=== PATIENT | female | born 1970 | race Caucasian/White ===

== ENCOUNTER → 2017-02-04 | Outpatient (CLI) | payer BC ==
[~2017-02-04] MED LIST: ACET1TAB43 PO; ATEN-155 PO; ATEN25TA PO; AZIT250T5 PO; CETI10TA20 PO; CLON0.1T; CRAN1CAP7 PO; DEXA4TAB; DIAZ-345 PO; DIAZ5TAB3; ESCT10T; ESTR0.5T PO; ESTR1TAB24 PO; FLUT1BLS IH; FURO20TA4 PO; GABA-488; GLYC1TAB5 PO; GLYC2TAB PO; HYDR-3714 PO; KETO-22 PO; KETO10TA77 PO; LEVA0.6313 NEB; LIDOCAINE; MONT10TA24 PO; MYLANTA; OXYC-103 PO; OXYC-12 PO; PANT40TA2 PO; PANT40TA3 PO; PHENTERAMINE; POTA20TA7 PO; PRCD5U PO; PRD10T PO; PRD20T PO; PROM25SU10 RC; RT-ALBUINH INH; SERT50TA PO; TMSL.4C PO; TRAM50TA2 PO; TRIA1CAP4 PO
--- NOTE | 2017-02-04 15:56 | Diagnostic Imaging Report ---
EXAMINATION: PA and lateral views of the chest. INDICATION: Chest pain. The patient reports having a lung biopsy 2 weeks ago. FINDINGS: There are bibasilar infiltrates that appear to be within the inferior lingula and the right middle lobe. The opacity in the right lung base has a nodular component. Reportedly the patient has had a biopsy performed. The heart size is normal. No effusion or pneumothorax. The mediastinum and dipak appear unremarkable. IMPRESSION: Bibasilar opacities may relate to infiltrates and/or atelectasis. There is a nodular component lesion in the right middle lobe seen as well. CT scan correlation is recommended. Dictated by: Dictated on workstation # [id number]
== END ==
LOC: RAD 10:27
PROVIDERS: ATTEND Internal Medicine
DX: R07.89 Other chest pain (principal)
CPT/HCPCS: 71020

== ENCOUNTER → 2017-07-25 | Outpatient (CLI) | payer BC ==
--- NOTE | 2017-07-25 09:27 | Diagnostic Imaging Report ---
EXAMINATION: Bilateral diagnostic mammogram with tomography. The current study was also evaluated with a Computer Aided Detection (CAD) system. COMPARISON: 04/24/2015. INDICATION: Right breast lump. FINDINGS: The breasts are composed of heterogeneously dense parenchyma which may decrease mammographic sensitivity. There is no mass, architectural distortion, or suspicious cluster of calcifications. IMPRESSION: No mammographic evidence of malignancy. An ultrasound evaluation is pending. ACR BI-RADS Category 0: Incomplete. (Needs additional imaging evaluation). Result letter will be mailed to the patient. Note: At least 10% of breast cancer is not imaged by mammography. Dictated by: Dictated on workstation # [id number]
--- NOTE | 2017-07-25 09:38 | Diagnostic Imaging Report ---
EXAMINATION: Right breast ultrasound. INDICATION: Right breast lump. FINDINGS: The area of lump around the 7 o'clock zone in the right breast was scanned with no underlying abnormality seen. IMPRESSION: Negative study. Clinical followup of the palpable area is recommended. ACR BI-RADS Category 1: Negative. Result letter will be mailed to the patient. Note: At least 10% of breast cancer is not imaged by mammography. Dictated by: Dictated on workstation # [id number]
== END ==
LOC: RAD 07:48
PROVIDERS: ATTEND Nurse Practitioner
DX: N63 Unspecified lump in breast (principal)
CPT/HCPCS: 77066

== ENCOUNTER 2017-09-12 09:13 | Outpatient (CLI) | payer BC | END 2017-09-12 09:20 | disposition home or self-care (01) | LOC: SLEEP 09:13 | PROVIDERS: ATTEND Nurse Practitioner Family | DX: G47.33 Obstructive sleep apnea (adult) (pediatric) (principal); G47.10 Hypersomnia, unspecified; R06.83 Snoring; J84.10 Pulmonary fibrosis, unspecified ==

== ENCOUNTER 2017-09-30 16:11 | Emergency (ER) | payer BC ==
[~2017-09-30] VITALS: Ht 160 cm; Wt 86.2 kg
[~2017-09-30 16:11] MED LIST changes: +AZIT250T12 PO; -AZIT250T5 PO
--- OUTSIDE RECORDS SUMMARY | 2017-09-30 16:15 | XMS REPORT ---
Author Author RAYMUNDO HARRIS [facility] Address [address] [place] [address] Care Team Providers Care Evidence Technician Name Role Phone RAYMUNDO HARRIS Unavailable PROBLEMS Type Condition ICD9-CM Code [id number] Code Onset Dates Condition Status SNOMED Code Problem Need for prophylactic vaccination and inoculation, Influenza V04.81 Active 511108949 ALLERGIES No Information SOCIAL HISTORY Never Assessed PLAN OF CARE VITAL SIGNS MEDICATIONS Medication Instructions Dosage Frequency Start Date End Date Duration Status Tamiflu 75 MG Orally Once a day 1 capsule 24h Dec, 10 days Active RESULTS No Results PROCEDURES No Known procedures IMMUNIZATIONS No Known Immunizations
--- OUTSIDE RECORDS SUMMARY | 2017-09-30 16:15 | XMS REPORT | Clinical Summary ---
Author Author [facility] Organization [facility] Address Unknown Phone Unavailable Care Team Providers Care Wallet Assembler Name Role Phone PCP Unavailable Source Comments Some departments are not documenting in the electronic medical record. If you do not see the information that you expected, contact Release of Information in the Health Information Management department at [phone] for further assistance in locating additional records.[facility] Allergies Active Allergy Reactions Severity Noted Date Comments Tetanus Toxoid ANAPHYLAXIS High 08/13/2016 Triamterene ANAPHYLAXIS High 08/16/2016 Current Medications Prescription Sig. Disp. Refills Start End Date Status Date estradiol (ESTRACE) 1 mg Take 1 mg by mouth daily. Active tablet atenolol (TENORMIN) 25 mg Take 25 mg by mouth Active tablet daily. albuterol 0.5% Inhale 2.5 mg solution by Active (PROVENTIL; VENTOLIN) 2.5 nebulizer as directed mg/0.5 mL nebulizer every 6 hours as needed solution for Shortness of Breath or Wheezing. albuterol (VENTOLIN HFA) Inhale 2 Puffs by mouth Active 90 mcg/actuation inhaler into the lungs every 6 hours as needed for Wheezing or Shortness of Breath. Shake well before use. CRANBERRY FRUIT EXTRACT Take by mouth daily. Active (CRANBERRY PO) ERGOCALCIFEROL (VITAMIN Take by mouth. Active D2) (VITAMIN D PO) prednisone (DELTASONE) 10 40 mg (4 tabs) x 5 days, 35 Tab 0 10/05/20 Active mg tablet then 20 mg (2 tabs) x 5 16 days, then 10 mg (1 tab) x 5 days benzonatate (TESSALON Take 1 Cap by mouth every 30 Cap 0 10/05/20 Active PERLES) 100 mg capsule 8 hours as needed for 16 Cough. Active Problems Problem Noted Date JUNI (obstructive sleep apnea) 09/15/2016 Gastroesophageal reflux disease without esophagitis 09/15/2016 Pulmonary HTN 09/07/2016 Dyspnea and respiratory abnormality 09/07/2016 Cough, persistent 09/07/2016 Family History Medical History Relation Name Comments Allergy-severe Brother Migraines Brother Cancer Father Migraines Father Allergy-severe Mother Anesthetic Complication Mother Blood Clots Mother Hypertension Mother Relation Name Status Comments Brother Alive Father Mother Alive Social History Tobacco Use Types Packs/Day Years Used Date Never Smoker Sex Assigned at Date Recorded Not on file Last Filed Vital Signs Vital Sign Reading Time Taken Blood Pressure 126/74 10/12/2016 10:42 AM 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 Pulse 80 09/20/2016 9:51 AM 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 Temperature 36.5 C (97.7 F) 09/15/2016 6:00 PM 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 Respiratory Rate 18 08/16/2016 10:21 AM CDT Oxygen Saturation 96% 09/15/2016 6:00 PM 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 Inhaled Oxygen - - Concentration Weight 90.9 kg (200 lb 4.8 oz) 10/12/2016 10:42 AM 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 Height 160 cm (5' 3") 10/12/2016 10:42 AM 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 Body Mass Index 35.48 10/12/2016 10:42 AM 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 Plan of Treatment Health Maintenance Due Date Last Done Comments PHYSICAL (COMPREHENSIVE) 1976 EXAM PERTUSSIS VACCINE 1980 TETANUS VACCINE 1986 CERVICAL CANCER SCREENING 1999 BREAST CANCER SCREENING 2009 INFLUENZA VACCINE 05/31/2017 Results Not on filefrom Last 3 Months
[2017-09-30] MEDS ORDERED: CEPH500T PO (16:22)
--- NOTE | 2017-09-30 16:35 | ED GI ---
General Chief Complaint: Abdominal/GI Problems Stated Complaint: DIARRHEA/PASSING OUT Source of Information: Patient, Family Exam Limitations: No Limitations History of Present Illness Time Seen By Provider: 16:33 Initial Comments To ER with reports of watery diarrhea today without blood or mucus, abdominal cramping, no nausea or vomiting. She did pass out 3 times today while on the toilet at home. Her daughter was ill with similar symptoms for the past few days but those have resolved today states. Timing/Duration: 1-2 Days Severity/Quality: Moderate Radiation: No Radiation Allergies and Home Medications Allergies Coded Allergies: Tetanus Vaccines and Toxoid (Verified Allergy, Unknown, 05/08/12) Home Medications Acetaminophen with Codeine 1 Each Tablet, 1 TAB PO HS, #20 Prescribed by: ZOHRA MARTINEZ on 12/15/15 1354 Albuterol Sulfate 18 Gm Hfa.aer.ad, 2 PUFF INH Q4H PRN for SHORTNESS OF BREATH, (Reported) Clonidine HCl 0.1 Mg Tablet, #60 (Reported) Cranberry Conc/Ascorbic Acid 1 Each Capsule, 2 CAP PO HS, (Reported) Dexamethasone 4 Mg Tablet, #30 (Reported) Diazepam 5 Mg Tablet, #45 (Reported) Estradiol 1 Mg Tablet, 1.5 MG PO HS, (Reported) TAKES 1 & 1/2 (1MG) TABLETS Fluticasone/Vilanterol 1 Each Blst.w.dev, 1 PUFF IH DAILY, (Reported) Gabapentin 300 Mg Capsule, #30 (Reported) Levalbuterol HCl 0.63 Mg/3 Ml Vial.neb, 0.63 MG NEB TID, (Reported) Review of Systems Constitutional: see HPI EENTM: No Symptoms Reported Respiratory: See HPI Cardiovascular: No Symptoms Reported Gastrointestinal: See HPI, Abdominal Pain, Diarrhea, Nausea Genitourinary: No Symptoms Reported Musculoskeletal: no symptoms reported Skin: no symptoms reported Psychiatric/Neurological: No Symptoms Reported Endocrine: No Symptoms Reported Hematologic/Lymphatic: No Symptoms Reported Past Jshphpe-Xjyiru-Smowoq Hx Patient Social History Recent Foreign Travel: No Contact w/Someone Who Travel: No Recent Hopitalizations: No Immunizations Up To Date Tetanus Booster (TDap): Unknown Respiratory Respiratory Disorders: Asthma, Chronic Bronchitis Reproductive System Hx Reproductive Disorders: Yes (INFERTILITY; HX OF HYST) 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 Genitourinary Genitourinary Disorders: Kidney Stones Family Medical History Family Medial History: Arthritis Cardiovascular disease Cataracts Completed stroke Coronary thrombosis Deafness or hearing loss Diabetes mellitus Glaucoma Hypertension Osteoporosis Parkinson's disease Prostate cancer Respiratory disorder Severe allergy Visual disorder No Family History of: AIDS Abdominal aortic aneurysm Darwin's disease Alcoholism Alzheimer's disease Aphasia Asthma Cancer of mouth Colon cancer Congenital disease Congenital heart disease Cystic fibrosis Dementia Drug abuse Dysphasia Fibrocystic disease of breast Gastroenteritis Headache disorder Hypercholesterolemia Infertility Kidney disease Myocardial infarction Neoplasm Not obtainable due to adoption Psychosocial problem Seizure disorder Thyroid disease Tuberculosis Physical Exam Vital Signs VS - Last 72 Hours, by Label 09/30/17 09/30/17 16:23 19:39 Temp 97.1 97.1 Pulse 87 87 Resp 20 20 B/P (MAP) 122/82 (95) Pulse Ox 94 94 O2 Delivery Room Air Capillary Refill : General Appearance: WD/WN, no apparent distress HEENT: PERRL/EOMI, normal ENT inspection Neck: non-tender, full range of motion Respiratory: no respiratory distress, no accessory muscle use Gastrointestinal: normal bowel sounds, non tender, soft Extremities: normal range of motion, non-tender Neurologic/Psychiatric: alert, oriented x 3, other ( tachypneic, asks for inhaler but this is the only time that she talks. Lungs are clear with good air movement. No rhonchi wheezing or rales. Keeps eyes closed during conversation.) Skin: normal color, warm/dry Progress/Results/Core Measures Results/Orders Lab Results Laboratory Tests Test 09/30/17 16:30 09/30/17 18:15 Range/Units White Blood Count 14.5 H 4.3-11.0 10^3/uL Red Blood Count 5.47 4.35-5.85 10^6/uL Hemoglobin 14.7 11.5-16.0 G/DL Hematocrit 43 35-52 % Mean Corpuscular Volume 79 L 80-99 FL Mean Corpuscular Hemoglobin 27 25-34 PG Mean Corpuscular Hemoglobin Concent 34 32-36 G/DL Red Cell Distribution Width 14.2 10.0-14.5 % Platelet Count 356 130-400 10^3/uL Mean Platelet Volume 9.7 7.4-10.4 FL Neutrophils (%) (Auto) 91 H 42-75 % Lymphocytes (%) (Auto) 4 L 12-44 % Monocytes (%) (Auto) 4 0-12 % Eosinophils (%) (Auto) 1 0-10 % Basophils (%) (Auto) 0 0-10 % Neutrophils # (Auto) 13.1 H 1.8-7.8 X 10^3 Lymphocytes # (Auto) 0.6 L 1.0-4.0 X 10^3 Monocytes # (Auto) 0.6 0.0-1.0 X 10^3 Eosinophils # (Auto) 0.1 0.0-0.3 10^3/uL Basophils # (Auto) 0.0 0.0-0.1 10^3/uL Neutrophils % (Manual) 90 % Lymphocytes % (Manual) 7 % Monocytes % (Manual) 3 % Eosinophils % (Manual) 0 % Basophils % (Manual) 0 % Band Neutrophils 0 % Blood Morphology Comment NORMAL Sodium Level 139 135-145 MMOL/L Potassium Level 4.1 3.6-5.0 MMOL/L Chloride Level 104 98-107 MMOL/L Carbon Dioxide Level 25 21-32 MMOL/L Anion Gap 10 5-14 MMOL/L Blood Urea Nitrogen 11 7-18 MG/DL Creatinine 0.84 0.60-1.30 MG/DL Estimat Glomerular Filtration Rate > 60 BUN/Creatinine Ratio 13 Glucose Level 120 H 70-105 MG/DL Calcium Level 9.7 8.5-10.1 MG/DL Total Bilirubin 0.5 0.1-1.0 MG/DL Aspartate Amino Transf (AST/SGOT) 18 5-34 U/L Alanine Aminotransferase (ALT/SGPT) 16 0-55 U/L Alkaline Phosphatase 111 40-136 U/L Total Protein 7.8 6.4-8.2 GM/DL Albumin 4.1 3.2-4.5 GM/DL Lipase 17 8-78 U/L Urine Color YELLOW Urine Clarity CLEAR Urine pH 6 5-9 Urine Specific [place] 1.015 L 1.016-1.022 Urine Protein 1+ H NEGATIVE Urine Glucose (UA) NEGATIVE NEGATIVE Urine Ketones 1+ H NEGATIVE Urine Nitrite NEGATIVE NEGATIVE Urine Bilirubin NEGATIVE NEGATIVE Urine Urobilinogen NORMAL NORMAL MG/DL Urine Leukocyte Esterase NEGATIVE NEGATIVE Urine RBC (Auto) NEGATIVE NEGATIVE Urine RBC NONE /HPF Urine WBC RARE /HPF Urine Squamous Epithelial Cells 10-25 H /HPF Urine Crystals NONE /LPF Urine Bacteria FEW H /HPF Urine Casts NONE /LPF Urine Mucus SMALL H /LPF Urine Culture Indicated NO My Orders Orders - VILLAGOMEZ,PETER J GAS BOOSTER ENGINEER Loperamide Capsule (Imodium Capsule) (09/30/17 16:45) Lorazepam Injection (Ativan Injection) (09/30/17 16:45) Ns Iv 1000 Ml (Sodium Chloride 0.9%) (09/30/17 16:45) Cbc With Automated Diff (09/30/17 16:31) Comprehensive Metabolic Panel (09/30/17 16:31) Lipase (09/30/17 16:31) Ua Culture If Indicated (09/30/17 16:31) Manual Differential (09/30/17 16:30) Lactated Ringers (Lr 1000 Ml Iv Solution (09/30/17 17:15) Medications Given in ED Current Medications Medications Dose Ordered Sig/Faye Route Start Time Stop Time Status Last Admin Dose Admin Loperamide HCl 4 mg ONCE ONCE PO 09/30/17 16:45 09/30/17 16:46 DC 09/30/17 17:01 4 MG Lorazepam 0.5 mg ONCE ONCE IVP 09/30/17 16:45 09/30/17 16:46 DC 09/30/17 16:41 0.5 MG Vital Signs/I&O Vital Sign - Last 12Hours 09/30/17 09/30/17 16:23 19:39 Temp 97.1 97.1 Pulse 87 87 Resp 20 20 B/P (MAP) 122/82 (95) Pulse Ox 94 94 O2 Delivery Room Air Departure Impression Impression: Primary Impression: Diarrhea Disposition: 01 HOME, SELF-CARE Condition: Stable Departure-Patient Inst. Decision time for Depature: 18:41 Referrals: RONY RAY DO (PCP/Family) Primary Care Physician Patient Instructions: Diarrhea in Adolescents and Adults Add. Discharge Instructions: 1. Return to ER for any concerns such as fevers, worsening pain 2. Follow-up with your doctor next week 3. Drink plenty of fluids to stay hydrated. Pedialyte (find a flavor that you like) which you can buy at [employer] or [employer] is a great choice for oral rehydration solution. 4. Take Imodium as prescribed on the box. This is use to help control diarrhea. This can also be purchased [id number] [employer] or [employer]. All discharge instructions reviewed with patient and/or family. Voiced understanding. GUILLERMINA VILLAGOMEZ APRN Sep 30, 2017 16:35
[2017-09-30 16:41] LABS: BASOPHILS % (AUTO) 0 % (0-10); EOSINOPHILS # (AUTO) 0.1 10^3/uL (0.0-0.3); EOSINOPHILS % (AUTO) 1 % (0-10); LYMPHOCYTES # (AUTO) 0.6 X 10^3 (1.0-4.0); LYMPHOCYTES % (AUTO) 4 % (12-44); MEAN CORPUSCULAR HEMOGLOBIN 27 PG (25-34); MEAN CORPUSCULAR HGB CONC 34 G/DL (32-36); MEAN CORPUSCULAR VOLUME 79 FL (80-99); MEAN PLATELET VOLUME 9.7 FL (7.4-10.4); MONOCYTES # (AUTO) 0.6 X 10^3 (0.0-1.0); MONOCYTES % (AUTO) 4 % (0-12); NEUTROPHILS # (AUTO) 13.1 X 10^3 (1.8-7.8); NEUTROPHILS % (AUTO) 91 % (42-75); PLATELET COUNT 356 10^3/uL (130-400); RED BLOOD COUNT 5.47 10^6/uL (4.35-5.85); RED CELL DISTRIBUTION WIDTH 14.2 % (10.0-14.5); WHITE BLOOD COUNT 14.5 10^3/uL (4.3-11.0)
[2017-09-30] MEDS ORDERED: LOPERAMIDE 2 MG (IMODIUM) CAP PO ONE (16:45)
[2017-09-30] MEDS ORDERED: LORazepam INJ 2 MG/ML (ATIVAN) VIAL IVP ONE (16:45)
[2017-09-30] MEDS ORDERED: NS IV 1000 ML 1,000 ML IV SCH (16:45)
[2017-09-30 16:56] LABS: BAND NEUTROPHILS 0 %; BASOPHILS % (MANUAL) 0 %; EOSINOPHILS % (MANUAL) 0 %; LYMPHOCYTES % (MANUAL) 7 %; NEUTROPHILS % (MANUAL) 90 %
[2017-09-30 16:59] LABS: ALANINE AMINOTRANSFERASE 16 U/L (0-55); ALBUMIN 4.1 GM/DL (3.2-4.5); ANION GAP 10 MMOL/L (5-14); ASPARTATE AMINO TRANSFERASE 18 U/L (5-34); BILIRUBIN,TOTAL 0.5 MG/DL (0.1-1.0); BLOOD UREA NITROGEN 11 MG/DL (7-18); BUN/CREATININE RATIO 13; CALCIUM 9.7 MG/DL (8.5-10.1); CARBON DIOXIDE 25 MMOL/L (21-32); CHLORIDE 104 MMOL/L (98-107); CREATININE SERUM 0.84 MG/DL (0.60-1.30); GFR ESTIMATED > 60; GLUCOSE 120 MG/DL (70-105); LIPASE 17 U/L (8-78); POTASSIUM 4.1 MMOL/L (3.6-5.0); SODIUM 139 MMOL/L (135-145); TOTAL PROTEIN 7.8 GM/DL (6.4-8.2)
[2017-09-30] MEDS ORDERED: LACTATED RINGERS 1,000 ML IV SCH (17:15)
[2017-09-30 18:25] LABS: BILIRUBIN,URINE NEGATIVE (NEGATIVE); KETONES,URINE 1+ (NEGATIVE); LEUKOCYTE ESTERASE ,URINE NEGATIVE (NEGATIVE); NITRITE,URINE NEGATIVE (NEGATIVE); PH,URINE 6 (5-9); PROTEIN,URINE 1+ (NEGATIVE); UROBILINOGEN,URINE NORMAL (NORMAL)
[2017-09-30 18:40] LABS: WBC,URINE RARE /HPF
[2017-09-30 19:39] VITALS: BP 122/82
== END 2017-09-30 19:38 | disposition home or self-care (01) ==
LOC: EDUNIT# 16:11 → ER 16:12
DX: R19.7 Diarrhea, unspecified (principal); J44.9 Chronic obstructive pulmonary disease, unspecified; Z87.442 Personal history of urinary calculi; Z90.710 Acquired absence of both cervix and uterus
CPT/HCPCS: 36415; 80053; 81000; 83690; 85007; 85027; 99283

== ENCOUNTER → 2019-03-09 | Outpatient (CLI) | payer BC ==
[~2019-03-09] MED LIST changes: +CEPH500T PO; -LEVA0.6313 NEB; +LEVA0.6334 NEB
--- NOTE | 2019-03-09 12:09 | Diagnostic Imaging Report ---
PROCEDURE: US Thyroid. TECHNIQUE: Multiple real-time grayscale images were obtained of the thyroid in various projections. INDICATION: Thyroid disorder. COMPARISON: Comparison is made with prior thyroid ultrasound from 12/15/2015. FINDINGS: Right lobe of the thyroid measures 4.3 x 2.1 x 1.1 cm and the left lobe measures 4.8 x 1.6 x 1.2 cm. Isthmus is 4 mm in thickness. Subcentimeter hypoechoic nodule in the mid left lobe is noted measuring approximately 5 mm x 3 mm. This is similar to prior exam. No dominant thyroid mass is detected. IMPRESSION: Stable thyroid ultrasound when compared with examination from 12/15/2015. No dominant thyroid mass is detected. Dictated by: Dictated on workstation # [id number]
== END ==
LOC: RAD 08:48
PROVIDERS: ATTEND Nurse Practitioner Family
DX: E07.9 Disorder of thyroid, unspecified (principal)
CPT/HCPCS: 76536

== ENCOUNTER → 2019-03-09 | Outpatient (CLI) | payer BC ==
--- NOTE | 2019-03-09 15:48 | Diagnostic Imaging Report ---
INDICATION: Routine screening. COMPARISON: Comparison is made with prior mammograms from 07/25/2017 and 04/24/2015. TECHNIQUE: 2D and 3D bilateral screening mammography was performed with Computer Aided Detection (CAD) system. FINDINGS: Both breasts are heterogeneously dense, limiting the sensitivity of mammography. Parenchymal pattern is stable. No mass or malignant-appearing microcalcifications are seen. Axillae are unremarkable. IMPRESSION: No mammographic features suspicious for malignancy are identified. ACR BI-RADS Category 1: Negative. Result letter will be mailed to the patient. Note: At least 10% of breast cancer is not imaged by mammography. Dictated by: Dictated on workstation # [id number]
== END ==
LOC: RAD 08:46
PROVIDERS: ATTEND Nurse Practitioner
DX: Z12.31 Encounter for screening mammogram for malignant neoplasm of breast (principal); Z01.419 Encounter for gynecological examination (general) (routine) without abnormal findings; N76.0 Acute vaginitis
CPT/HCPCS: 77067

== ENCOUNTER → 2020-02-28 | Outpatient (CLI) | payer MEDICARE ==
[~2020-02-28] MED LIST changes: -CETI10TA20 PO; +CETI10TA21 PO; -DIAZ5TAB3; +DIAZ5TAB49; -MONT10TA24 PO; +MONT10TA26 PO
--- NOTE | 2020-02-28 17:48 | Diagnostic Imaging Report ---
INDICATION: Left flank pain. EXAMINATION: Single view of the abdomen was obtained. FINDINGS: There are stones in the right kidney, the largest in an interpolar calyx measuring 5.1 mm. These are either increased from the comparison of 2015 or previously obscured by overlying bowel content. No definite radiodense left-sided renal stone. A left pelvic calcification is identical to the remote comparison and is believed incidental phlebolith. Bowel gas pattern is normal. IMPRESSION: Right renal calculi have become apparent. No definite left-sided urolithiasis. Dictated by: Dictated on workstation # [id number]
== END ==
LOC: RAD 13:48
PROVIDERS: ATTEND Surgery
DX: N20.0 Calculus of kidney (principal)
CPT/HCPCS: 74018

== ENCOUNTER 2020-03-28 12:48 | Outpatient (RCR) | payer BC, MEDICARE ==
[2020-01-03 12:48] VITALS: BP 134/91
[2020-01-03] MEDS: MEPOLIZUMAB 100 MG (NUCALA) VIAL SQ SCH (13:10)
[2020-01-31] MEDS: MEPOLIZUMAB 100 MG (NUCALA) VIAL SQ SCH (13:12)
[2020-01-31 13:18] VITALS: BP 131/92
[2020-02-28] MEDS: MEPOLIZUMAB 100 MG (NUCALA) VIAL SQ SCH (13:39)
[2020-02-28 13:40] VITALS: BP 138/89
[~2020-03-28] VITALS: Ht 162 cm; Wt 90.0 kg
[~2020-03-28 12:48] MED LIST changes: +MEPOLIZUMAB 100 MG (NUCALA) VIAL SQ SCH
[2020-03-28 12:50] VITALS: BP 134/84
[2020-03-28] MEDS: MEPOLIZUMAB 100 MG (NUCALA) VIAL SQ SCH (13:27)
[2020-04-03] MEDS ORDERED: KETO10TA PO (13:40)
[2020-04-03] MEDS ORDERED: TMSL.4C PO (13:40)
== END 2020-04-02 | disposition home or self-care (01) ==
LOC: SDC 12:48
PROVIDERS: ATTEND Nurse Practitioner Family
DX: J45.909 Unspecified asthma, uncomplicated (principal); D72.1 Eosinophilia
CPT/HCPCS: 96372

== ENCOUNTER 2020-04-03 11:57 | Emergency (ER) | payer MEDICARE ==
[~2020-04-03] VITALS: Ht 160 cm; Wt 95.4 kg
[~2020-04-03 11:57] MED LIST changes: -MEPOLIZUMAB 100 MG (NUCALA) VIAL SQ SCH
--- NOTE | 2020-04-03 12:13 | ED General ---
General Chief Complaint: Abdominal/GI Problems Stated Complaint: KIDNEY STONES Source of Information: Patient Exam Limitations: No Limitations History of Present Illness Date Seen by Provider: Apr 03, 2020 Time Seen by Provider: 12:12 Initial Comments To ER with reports of right flank pain/back pain. Has a known kidney stone 5 mm on the right. This was found on KUB ordered by Dr. CHILDRESS 1 month ago. Pain became intense yesterday. History of kidney stones. Timing/Duration: 1-2 Days Severity: Severe Associated Systoms: No Nausea/Vomiting Allergies and Home Medications Allergies Coded Allergies: Tetanus Vaccines and Toxoid (Verified Allergy, Unknown, 05/08/12) Home Medications Acetaminophen with Codeine 1 Each Tablet, 1 TAB PO HS Prescribed by: ZOHRA MARTINEZ on 12/15/15 1354 Albuterol Sulfate 18 Gm Hfa.aer.ad, 2 PUFF INH Q4H PRN for SHORTNESS OF BREATH, (Reported) Cranberry Conc/Ascorbic Acid 1 Each Capsule, 2 CAP PO HS, (Reported) Estradiol 1 Mg Tablet, 1.5 MG PO HS, (Reported) TAKES 1 & 1/2 (1MG) TABLETS Fluticasone/Vilanterol 1 Each Blst.w.dev, 1 PUFF IH DAILY, (Reported) Levalbuterol HCl 0.63 Mg/3 Ml Vial.neb, 0.63 MG NEB TID, (Reported) Patient Home Medication List Home Medication List Reviewed: Yes Review of Systems Review of Systems Constitutional: see HPI EENTM: see HPI Respiratory: no symptoms reported Cardiovascular: no symptoms reported Genitourinary: see HPI Musculoskeletal: no symptoms reported Skin: no symptoms reported Psychiatric/Neurological: No Symptoms Reported Hematologic/Lymphatic: No Symptoms Reported Immunological/Allergic: no symptoms reported Past Uckcsuu-Saocqc-Tdlqxv Hx Patient Social History 2nd Hand Smoke Exposure: No Recent Hopitalizations: No Immunizations Up To Date Tetanus Booster (TDap): Unknown Past Medical History Surgeries: Yes (LAP KERRI,LAP GALO,HYST.,NECK SURGERY, OVARIAN CYSTECTOMY, ESWL) Respiratory: Yes Asthma, Chronic Bronchitis Cardiac: No Neurological: No Reproductive Disorders: Yes (INFERTILITY; HX OF 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) 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 Gastrointestinal: Yes (GERD) Endocrine: No Cancer: No Psychosocial: No Integumentary: No Blood Disorders: No Family Medical History Arthritis Cardiovascular disease Cataracts Completed stroke Coronary thrombosis Deafness or hearing loss Diabetes mellitus Glaucoma Hypertension Osteoporosis Parkinson's disease Prostate cancer Respiratory disorder Severe allergy Visual disorder No Family History of: AIDS Abdominal aortic aneurysm [place]'s disease Alcoholism Alzheimer's disease Aphasia Asthma Cancer of mouth Colon cancer Congenital disease Congenital heart disease Cystic fibrosis Dementia Drug abuse Dysphasia Fibrocystic disease of breast Gastroenteritis Headache disorder Hypercholesterolemia Infertility Kidney disease Myocardial infarction Neoplasm Not obtainable due to adoption Psychosocial problem Seizure disorder Thyroid disease Tuberculosis Physical Exam Vital Signs Vital Signs - First Documented 04/03/20 11:59 Temp 36.3 Pulse 73 Resp 18 B/P (MAP) 159/83 (108) Pulse Ox 97 Capillary Refill : Height, Weight, BMI Height: 5'3.00" Weight: 190lbs. 0oz. 86.262341tw; 31.00 BMI Method:Stated General Appearance: WD/WN, Mild Distress (related to pain) Eyes: Bilateral Eye Normal Inspection, Bilateral Eye PERRL, Bilateral Eye EOMI HEENT: PERRL/EOMI, TMs Normal Neck: Full Range of Motion, Normal Inspection Respiratory: No Accessory Muscle Use, No Respiratory Distress Gastrointestinal: Non Tender, Soft Extremity: Normal Capillary Refill, Normal Inspection Neurologic/Psychiatric: Alert, Oriented x3 Skin: Normal Color, Warm/Dry Progress/Results/Core Measures Suspected Sepsis SIRS Temperature: Pulse: Respiratory Rate: Laboratory Tests 04/03/20 12:00: White Blood Count 11.0 Blood Pressure / Mean: Laboratory Tests 04/03/20 12:00: Creatinine 0.89, Platelet Count 343 Results/Orders Lab Results Laboratory Tests Test 04/03/20 12:00 04/03/20 12:42 Range/Units White Blood Count 11.0 4.3-11.0 10^3/uL Red Blood Count 5.07 4.35-5.85 10^6/uL Hemoglobin 13.7 11.5-16.0 G/DL Hematocrit 40 35-52 % Mean Corpuscular Volume 80 80-99 FL Mean Corpuscular Hemoglobin 27 25-34 PG Mean Corpuscular Hemoglobin Concent 34 32-36 G/DL Red Cell Distribution Width 13.8 10.0-14.5 % Platelet Count 343 130-400 10^3/uL Mean Platelet Volume 9.7 7.4-10.4 FL Neutrophils (%) (Auto) 73 42-75 % Lymphocytes (%) (Auto) 21 12-44 % Monocytes (%) (Auto) 6 0-12 % Eosinophils (%) (Auto) 1 0-10 % Basophils (%) (Auto) 0 0-10 % Neutrophils # (Auto) 8.0 H 1.8-7.8 X 10^3 Lymphocytes # (Auto) 2.3 1.0-4.0 X 10^3 Monocytes # (Auto) 0.6 0.0-1.0 X 10^3 Eosinophils # (Auto) 0.1 0.0-0.3 10^3/uL Basophils # (Auto) 0.0 0.0-0.1 10^3/uL Sodium Level 140 135-145 MMOL/L Potassium Level 4.1 3.6-5.0 MMOL/L Chloride Level 106 98-107 MMOL/L Carbon Dioxide Level 23 21-32 MMOL/L Anion Gap 11 5-14 MMOL/L Blood Urea Nitrogen 9 7-18 MG/DL Creatinine 0.89 0.60-1.30 MG/DL Estimat Glomerular Filtration Rate > 60 BUN/Creatinine Ratio 10 Glucose Level 109 H 70-105 MG/DL Calcium Level 9.1 8.5-10.1 MG/DL Urine Color YELLOW Urine Clarity CLEAR Urine pH 6.0 5-9 Urine Specific [place] 1.025 H 1.016-1.022 Urine Protein 1+ H NEGATIVE Urine Glucose (UA) NEGATIVE NEGATIVE Urine Ketones NEGATIVE NEGATIVE Urine Nitrite NEGATIVE NEGATIVE Urine Bilirubin NEGATIVE NEGATIVE Urine Urobilinogen 0.2 < = 1.0 MG/DL Urine Leukocyte Esterase NEGATIVE NEGATIVE Urine RBC (Auto) 3+ H NEGATIVE Urine RBC 25-50 H /HPF Urine WBC NONE /HPF Urine Squamous Epithelial Cells 10-25 H /HPF Urine Crystals PRESENT H /LPF Urine Amorphous Sediment RARE JULIANO URATES H /LPF Urine Bacteria TRACE /HPF Urine Casts NONE /LPF Urine Mucus MODERATE H /LPF Urine Culture Indicated NO My Orders Orders - GUILLERMINA VILLAGOMEZ [employer] Cbc With Automated Diff (04/03/20 12:10) Basic Metabolic Panel (04/03/20 12:10) Ua Culture If Indicated (04/03/20 12:10) Abdomen/Kub 1view (04/03/20 12:10) Ed Iv/Invasive Line Start (04/03/20 12:10) Ns Iv 1000 Ml (Sodium Chloride 0.9%) (04/03/20 12:15) Fentanyl Injection (Sublimaze Injection (04/03/20 12:15) Ketorolac Injection (Toradol Injection) (04/03/20 12:15) Ct Abd/Pelvis Wo(Kidney Stone) (04/03/20 13:01) Medications Given in ED Current Medications Medications Dose Ordered Sig/Faye Route Start Time Stop Time Status Last Admin Dose Admin Fentanyl Citrate 50 mcg ONCE ONCE IVP 04/03/20 12:15 04/03/20 12:16 DC 04/03/20 12:21 50 MCG Ketorolac Tromethamine 15 mg ONCE ONCE IVP 04/03/20 12:15 04/03/20 12:16 DC 04/03/20 12:22 15 MG Vital Signs/I&O 04/03/20 11:59 Temp 36.3 Pulse 73 Resp 18 B/P (MAP) 159/83 (108) Pulse Ox 97 Capillary Refill : Departure Communication (Admissions) 1302-pain is now rated at 4 out of 10, much better, after 15 mg of Toradol and 50 g of fentanyl. Poorly evaluated stone on KUB, we'll get CT. 1338- pain is still tolerable. She would like to go on home. Her hydrocodone didn't help much but she is on naltrexone at home for her chronic lung disease she states. As such she'll get more benefit out of NSAIDs. I'll give her a prescription for Flomax and ketorolac. Impression Primary Impression: Right ureteral stone Disposition: HOME, SELF-CARE Condition: Improved (today) Departure-Patient Inst. Decision time for Depature: 13:18 Referrals: RONY RAY DO (PCP) Primary Care Physician LUTHER RAY DNP (Family) Primary Care Physician Patient Instructions: Kidney Stones in Adults Add. Discharge Instructions: Pain medication as directed. Return to ER for any intolerable pain or any fevers or chills, nausea or vomiting. All discharge instructions reviewed with patient and/or family. Voiced understanding. Scripts Ketorolac Tromethamine (Ketorolac Tromethamine) 10 Mg Tablet 10 MG PO TID PRN for PAIN-SEVERE (8-10), #9 TAB Prov: GUILLERMINA VILLAGOMEZ [employer] 04/03/20 Tamsulosin HCl (Flomax) 0.4 Mg Cap 0.4 MG PO DAILY, #10 CAP Prov: GUILLERMINA VILLAGOMEZ APRN 04/03/20 Copy Copies To 1: VISH GROSSMAN MD, PETER J APRN Apr 03, 2020 12:13
[2020-04-03] MEDS ORDERED: fentaNYL INJECTION 100 MCG/2 ML AMP IVP ONE (12:15)
[2020-04-03] MEDS ORDERED: KETOROLAC 30 MG/ML VIAL IVP ONE (12:15)
[2020-04-03] MEDS ORDERED: NS IV 1000 ML 1,000 ML IV SCH (12:15)
[2020-04-03 12:16] LABS: BASOPHILS % (AUTO) 0 % (0-10); EOSINOPHILS # (AUTO) 0.1 10^3/uL (0.0-0.3); EOSINOPHILS % (AUTO) 1 % (0-10); HEMATOCRIT 40 % (35-52); HEMOGLOBIN 13.7 G/DL (11.5-16.0); LYMPHOCYTES # (AUTO) 2.3 X 10^3 (1.0-4.0); LYMPHOCYTES % (AUTO) 21 % (12-44); MEAN CORPUSCULAR HEMOGLOBIN 27 PG (25-34); MEAN CORPUSCULAR HGB CONC 34 G/DL (32-36); MEAN CORPUSCULAR VOLUME 80 FL (80-99); MEAN PLATELET VOLUME 9.7 FL (7.4-10.4); MONOCYTES # (AUTO) 0.6 X 10^3 (0.0-1.0); MONOCYTES % (AUTO) 6 % (0-12); NEUTROPHILS % (AUTO) 73 % (42-75); PLATELET COUNT 343 10^3/uL (130-400); RED CELL DISTRIBUTION WIDTH 13.8 % (10.0-14.5)
[2020-04-03 12:26] LABS: CHLORIDE 106 MMOL/L (98-107); POTASSIUM 4.1 MMOL/L (3.6-5.0); SODIUM 140 MMOL/L (135-145)
[2020-04-03 12:28] LABS: CALCIUM 9.1 MG/DL (8.5-10.1); GLUCOSE 109 MG/DL (70-105)
[2020-04-03 12:30] LABS: CARBON DIOXIDE 23 MMOL/L (21-32)
[2020-04-03 12:32] LABS: CREATININE SERUM 0.89 MG/DL (0.60-1.30); GFR ESTIMATED > 60
[2020-04-03 12:33] LABS: BUN/CREATININE RATIO 10
--- NOTE | 2020-04-03 12:42 | NUR ---
AMB TO BATHROOM TO OBTAIN UA REPORTS PAIN BETTER
--- NOTE | 2020-04-03 12:45 | Diagnostic Imaging Report ---
INDICATION: History of renal calculus. COMPARISON: 02/28/2020 FINDINGS: Single frontal radiograph view the abdomen was obtained. Renal shadows obscured by debris within the colon. There is suggestion of small calculi projecting over the inferior pole of the right kidney. No other unexpected extraosseous calcifications or radiopaque foreign bodies are seen. Small bowel loops are nondistended. There is no large collection of free intraperitoneal air. IMPRESSION: 1. Probable persisting calculus projecting over the inferior pole of the right kidney, although exam is partially degraded by debris within the colon projecting over the right renal shadow. 2. Nonobstructed small bowel gas pattern. Dictated by: Dictated on workstation # [id number]
[2020-04-03 12:50] LABS: BILIRUBIN,URINE NEGATIVE (NEGATIVE); CLARITY,URINE CLEAR; COLOR,URINE YELLOW; GLUCOSE, URINE (UA) NEGATIVE (NEGATIVE); KETONES,URINE NEGATIVE (NEGATIVE); LEUKOCYTE ESTERASE ,URINE NEGATIVE (NEGATIVE); NITRITE,URINE NEGATIVE (NEGATIVE); PROTEIN,URINE 1+ (NEGATIVE)
[2020-04-03 13:03] LABS: AMORPHOUS SEDIMENT,UR RARE AMOR URATES /LPF; BACTERIA,URINE TRACE /HPF; RBC,URINE 25-50 /HPF
--- NOTE | 2020-04-03 13:27 | Diagnostic Imaging Report ---
PROCEDURE: CT urinary tract, rule out kidney stone. TECHNIQUE: Multiple contiguous axial images were obtained through the abdomen and pelvis without the use of intravenous contrast. Auto Exposure Controls were utilized during the CT exam to meet ALARA standards for radiation dose reduction. INDICATION: Left flank pain. Exam compared to 03/16/2015. There is a right ureteral calculus measuring 3.7 x 3.3 mm in the proximal right ureter at the level of the L3-L4 intervertebral disc space. This stone results in a moderate degree of upstream right-sided hydroureteronephrosis with right-sided perinephric edema. There is multiple and intervally increased numbers of intrarenal calculi which are nonobstructing the stone burden is greater right than left. The largest renal calculus is in the right lower pole calyx measuring 4.9 mm. Left stones are more mild and measured 2 mm maximal. The unopacified urinary bladder unremarkable. The appendix is normal. The gallbladder absent. The liver, spleen, adrenals and pancreas unremarkable The aorta is nonaneurysmal. There is no bowel obstruction. No pneumatosis. No free air. IMPRESSION: Proximal right ureteral stone measured 3.7 mm and results in moderate upstream right-sided hydroureteronephrosis with progressive right greater than left intrarenal calculus from the comparison. No other significant finding. Dictated by: Dictated on workstation # [id number]
[2020-04-03] MEDS ORDERED: KETO10TA PO (13:40)
[2020-04-03] MEDS ORDERED: TMSL.4C PO (13:40)
[2020-04-03 13:50] VITALS: BP 127/68
--- OUTSIDE RECORDS SUMMARY | 2020-04-03 14:25 | XMS REPORT | Clinical Summary ---
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 If you d o not see the information that you expected, contact Release of Information in [facility] Information Management department at [phone] for further assistan ce in locating additional records.[facility] Allergies Comments Active Allergy Reactions Severity Noted Date Tetanus Toxoid ANAPHYLAXIS High 08/13/2016 Triamterene ANAPHYLAXIS High 08/16/2016 Medications End Date Status Medication Sig Dispensed Refills Start Date Active estradiol (ESTRACE) 1 mg Take 1 mg by 0 tablet mouth daily. Active atenolol (TENORMIN) 25 mg Take 25 mg by 0 tablet mouth daily. Active albuterol 0.5% Inhale 2.5 mg 0 (PROVENTIL; VENTOLIN) 2.5 solution by mg/0.5 mL nebulizer nebulizer as solution directed every 6 hours as needed for Shortness of Breath or Wheezing. Active albuterol (VENTOLIN HFA) Inhale 2 0 90 mcg/actuation inhaler Puffs by mouth into the lungs every 6 hours as needed for Wheezing or Shortness of Breath. Shake well before use. Active CRANBERRY FRUIT EXTRACT Take by 0 (CRANBERRY PO) mouth daily. Active ERGOCALCIFEROL (VITAMIN Take by 0 D2) (VITAMIN D PO) mouth. Active prednisone (DELTASONE) 10 40 mg (4 35 Tab 0 10/05/201 mg tablet tabs) x 5 6 days, then 20 mg (2 tabs) x 5 days, then 10 mg (1 tab) x 5 days Active benzonatate (TESSALON Take 1 Cap by 30 Cap 0 PERLES) 100 mg capsule mouth every 8 6 hours as needed for Cough. Active Problems Problem Noted Date JUNI [...] Brother Alive Father Mother Alive Social History Date Tobacco Use Types Packs/Day Years Used Never Smoker Sex Assigned at Date Recorded Not on file Industry Job Start Date Occupation Not on file Not on file Not on file Travel End Travel History Travel Start No recent travel history available. 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 Weight 160 cm (5' 3") 10/12/2016 10:42 AM [employer] DEVEL[employer] Height 35.48 10/12/2016 10:42 AM [employer] DEVEL[employer] Body Mass Index Plan of Treatment Health Maintenance Due Date Last Done Comments DTAP/TDAP VACCINES (1 - 1987 Tdap) HEPATITIS C SCREENING 1987 PHYSICAL (COMPREHENSIVE) 1987 EXAM CERVICAL CANCER SCREENING 1990 BREAST CANCER SCREENING 2009 COLORECTAL CANCER 2019 SCREENING SHINGLES RECOMBINANT 2019 VACCINE (1 of 2) INFLUENZA VACCINE 07/31/2020 HIV SCREENING Completed 08/16/2016 Results Not on filefrom Last 3 Months Insurance Type Payer Benefit Subscriber ID Effective Phone Address Plan / Dates Group PPO BCBS [employer] xxxxxxxxxxxx [id number] [place] [id number] 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
--- OUTSIDE RECORDS SUMMARY | 2020-04-03 14:26 | XMS REPORT | Continuity of Care Document ---
Author Organization Unknown Address Unknown Phone Unavailable Allergies Active Description Code Type Severity Reaction Onset Reported/Identified Relationship to Patient Clinical Status Yes HYDROCHLOROTHIAZIDE MODERATE OTHER Yes TETANUS-DIPHTHERIA TOXOIDS-TD MODERATE OTHER Yes Tetanus Vaccines Toxoid [id number] Drug Allergy Unknown N/A 05/08/2012 Yes Tetanus Vaccines and Toxoid [id number] Drug Allergy Unknown N/A 05/08/2012 Medications Medication Packaging Start Date St op Date Route Dosage Sig ALPRAZOLAM TAB 0.25 MG (XANAX) MG 12/26/2017 12/26/2017 PRN ONCE Problems Date Dx Coded Attending Type Code Diagnosis Diagnosed By 10/22/2014 CONCHA HAMILTON DO V04.81 FLU SHOT 03/05/2015 CARLOS VIVAR Ot V76.1 2 03/05/2015 LUTHER RAY Ot 240.9 03/05/2015 LUTHER RAY Ot 246.2 03/08/2015 RONY SORIANO DO Ot 59 1 HYDRONEPHROSIS 03/08/2015 RONY SORIANO DO Ot 592.1 CALCULUS OF URETER 03/08/2015 RONY SORIANO DO Ot 788.0 RENAL COLIC 03/08/2015 RONY SORIANO DO Ot 789.00 ABDOMINAL PAIN, UNSPECIFIED SITE 03/18/2015 RONY RAY DO Ot 309.9 ADJUSTMENT REACTION NOS 03/18/2015 RONY RAY DO Ot 427.0 PAROX ATRIAL TACHYCARDIA 03/18/2015 RONY RAY DO Ot 530.81 ESOPHAGEAL REFLUX 03/18/2015 RONY RAY DO Ot 591 HYDRONEPHROSIS 03/18/2015 RONY RAY DO Ot 592.1 CALCULUS OF URETER 04/14/2015 VISH GROSSMAN MD Ot 785.1 04/14/2015 VISH GROSSMAN MD Ot 785.1 04/14/2015 SORAIDA GROSSMAN MDAS A Ot 785.1 04/15/2015 CHAUNCEY ROWELL, VISH Fritz Ot 785.1 04/15/2015 CHAUNCEY ROWELL, VISH A Ot 592.9 04/16/2015 CHAUNCEY ROWELL, VISH Fritz Ot 592.9 04/23/2015 CHAUNCEY ROWELL, VISH Fritz Ot 592.9 07/13/2015 CHAUNCEY ROWELL, VISH Fritz Ot 592.9 URINARY CALCULUS NOS 10/06/2015 RONY RAY DO Ot R07.9 11/03/2015 RONY RAY DO Ot R07.9 11/05/2015 FIOR ROWELL, RACHEL Ot K21.0 GASTRO-ESOPHAGEAL REFLUX DISEASE WITH ES 11/05/2015 FIOR ROWELL, RACHEL Ot K29.70 GASTRITIS, UNSPECIFIED, WITHOUT BLEEDING 11/05/2015 FIOR ROWELL, RACHEL Ot K44.9 DIAPHRAGMATIC HERNIA WITHOUT OBSTRUCTION 12/11/2015 OSORIO DO, ANA Ot E87.6 12/11/2015 OSORIO DO, ANA Ot J45.52 12/11/2015 OSORIO DO, ANA Ot K21.9 12/11/2015 OSORIO DO, ANA Ot N20.0 12/11/2015 OSORIO DO, ANA Ot R00.0 12/11/2015 OSORIO DO, ANA Ot R07.9 12/11/2015 OSORIO DO, ANA Ot E87.6 12/11/2015 OSORIO DO, ANA Ot J45.52 12/11/2015 OSORIO DO, ANA Ot K21.9 12/11/2015 OSORIO DO, ANA Ot N20.0 12/11/2015 OSORIO DO, ANA Ot R00.0 12/11/2015 OSORIO DO, ANA Ot R07.9 12/11/2015 OSORIO DO, ANA Ot E87.6 12/11/2015 OSORIO DO, ANA Ot J45.52 12/11/2015 OSORIO DO, ANA Ot K21.9 12/11/2015 OSORIO DO, ANA Ot N20.0 12/11/2015 OSORIO DO, ANA Ot R00.0 12/11/2015 OSORIO DO, ANA Ot R07.9 12/11/2015 OSORIO DO, ANA Ot E87.6 12/11/2015 JO GUAJARDO ANA Ot J45.52 12/11/2015 JO GUAJARDO ANA Ot K21.9 12/11/2015 JO GUAJARDO ANA Ot N20.0 12/11/2015 JO GUAJARDO ANA Ot R00.0 12/11/2015 JO GUAJARDO ANA Ot R07.9 12/15/2015 OSORIOYOSEF GUAJARDO ANA Ot E04.1 NONTOXIC SINGLE THYROID NODULE 12/15/2015 OSORIOYOSEF GUAJARDO ANA Ot E05.90 THYROTOXICOSIS, UNSP WITHOUT THYROTOXIC 12/15/2015 OSORIO DO ANA Ot E87.6 HYPOKALEMIA 12/15/2015 OSORIOYOSEF GUAJARDO ANA Ot I25.10 ATHSCL HEART DISEASE OF [place] CORONARY 12/15/2015 OSORIOYOSEF GUAJARDO ANA Ot I27.2 OTHER SECONDARY PULMONARY HYPERTENSION 12/15/2015 OSORIOYOSEF GUAJARDO ANA Ot J45.52 SEVERE PERSISTENT ASTHMA WITH STATUS AST 12/15/2015 OSORIOYOSEF GUAJARDO ANA Ot K21.9 GASTRO-ESOPHAGEAL REFLUX DISEASE WITHOUT 12/15/2015 OSORIO DO ANA Ot K44.9 DIAPHRAGMATIC HERNIA WITHOUT OBSTRUCTION 12/15/2015 OSORIOYOSEF GUAJARDO ANA Ot N20.0 CALCULUS OF KIDNEY 12/15/2015 OSORIOGAVIN NAVAS DOI Ot R00.0 TACHYCARDIA, UNSPECIFIED 12/24/2015 Ot J45.909 12/30/2015 Ot J45.909 12/30/2015 Ot J45.909 01/08/2016 DREAD ARANGO NURSING TECHNICIAN Ot R05 01/08/2016 DREAD ARANGO NURSING TECHNICIAN Ot R06.02 01/08/2016 DREAD ARANGO NURSING TECHNICIAN Ot R06.2 01/08/2016 DREAD ARANGO NURSING TECHNICIAN Ot R05 01/08/2016 DREAD ARANGO NURSING TECHNICIAN Ot R06.02 01/08/2016 DREAD ARANGO NURSING TECHNICIAN Ot R06.2 01/08/2016 Ot J45.909 03/03/2016 LUTHER RAY 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 Ot R53.83 OTHER FATIGUE 03/03/2016 LUTHER RAY 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 Ot R60.9 EDEMA, UNSPECIFIED 03/03/2016 FLORMONIEBOOM Larsen 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 Ot R73.09 OTHER ABNORMAL GLUCOSE 04/26/2016 CARLOS VIVAR 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 Ot V76.1 2 OTH SCREEN MAMMO-MALIGN NEOPLASM OF [place] 04/26/2016 RAYLUTHER RESENDIZ L 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 Ot 240.9 GOITER NOS 04/26/2016 RAYMONIE RESENDIZIA L 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 Ot 246.2 CYST OF THYROID 04/26/2016 FLORLUTHER L 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 Ot 789.01 ABDOMINAL PAIN, RIGHT UPPER QUADRANT 04/26/2016 CARLOS VIVAR 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 Ot V76.1 2 OTH SCREEN MAMMO-MALIGN NEOPLASM OF [place] 04/26/2016 CHAUNCEY ROWELL, VISH Fritz Ot 592.9 04/30/2016 CARLOS VIVAR 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 Ot V76.1 2 OTH SCREEN MAMMO-MALIGN NEOPLASM OF [place] 04/30/2016 FLOR LUTHER L 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 Ot 240.9 GOITER NOS 04/30/2016 MONIE RAYIA L 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 Ot 246.2 CYST OF THYROID 04/30/2016 FLORLUTHER L 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 Ot 789.01 ABDOMINAL PAIN, RIGHT UPPER QUADRANT 04/30/2016 CARLOS VIVAR 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 Ot V76.1 2 OTH SCREEN MAMMO-MALIGN NEOPLASM OF [place] 04/30/2016 CHAUNCEY ROWELL, VISH A Ot 592.9 05/06/2016 LUTHER RAY 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 Ot R53.83 OTHER FATIGUE 05/06/2016 LUTHER RAY L 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 Ot R60.9 EDEMA, UNSPECIFIED 05/06/2016 FLOR LUTHER L 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 Ot R73.09 OTHER ABNORMAL GLUCOSE 07/15/2016 LAINEY ARMENDARIZ Ot J45.998 OTHER ASTHMA 07/15/2016 LAINEY ARMENDARIZ Ot R00.0 TACHYCARDIA, UNSPECIFIED 07/15/2016 LAINEY ARMENDARIZ Ot R00.2 PALPITATIONS 07/15/2016 LAINEY ARMENDARIZ Ot R06.00 DYSPNEA, UNSPECIFIED 07/20/2016 RONY RAY DO Ot J45.909 UNSPECIFIED ASTHMA, UNCOMPLICATED 07/20/2016 RONY RAY DO Ot R05 COUGH 07/28/2016 RONY RAY DO Ot J45.909 UNSPECIFIED ASTHMA, UNCOMPLICATED 07/28/2016 RONY RAY DO Ot R05 COUGH 10/28/2016 ZOHRA MARTINEZ MD Ot R05 COUGH 10/28/2016 JUAN ROWELL, ZOHRA Ennis Ot Z79.899 OTHER LONGTERM (CURRENT) DRUG THERAPY 10/28/2016 RONY RAY DO Ot R07.9 CHEST PAIN, UNSPECIFIED 10/28/2016 RACHEL CHILDRESS MD Ot K21.9 GASTRO-ESOPHAGEAL REFLUX DISEASE WITHOUT 10/28/2016 RACHEL CHILDRESS MD Ot Z01.81 8 ENCOUNTER FOR OTHER PREPROCEDURAL EXAMIN 10/28/2016 DREAD ARANGO APRN Ot R05 COUGH 10/28/2016 DREAD ARANGO NURSING TECHNICIAN Ot R06.02 SHORTNESS OF BREATH 10/28/2016 DREAD ARANGO NURSING TECHNICIAN Ot R06.2 WHEEZING 10/28/2016 DREAD ARANGO APRN Ot R05 COUGH 10/28/2016 DREAD ARANGO NURSING TECHNICIAN Ot R06.02 SHORTNESS OF BREATH 10/28/2016 DREAD ARANGO APRN Ot R06.2 WHEEZING 10/28/2016 RONY RAY DO Ot R05 COUGH 10/28/2016 Ot J45.909 UN SPECIFIED ASTHMA, UNCOMPLICATED 10/28/2016 LAINEY ARMENDARIZ Ot J45.998 OTHER ASTHMA 10/28/2016 LAINEY ARMENDARIZ Ot R00.0 TACHYCARDIA, UNSPECIFIED 10/28/2016 LAINEY ARMENDARIZ Ot R00.2 PALPITATIONS 10/28/2016 LAINEY ARMENDARIZ Ot R06.00 DYSPNEA, UNSPECIFIED 10/28/2016 LUTHER RAY 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 Ot R53.83 OTHER FATIGUE 10/28/2016 LUTHER RAY 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 Ot R60.9 EDEMA, UNSPECIFIED 10/28/2016 LUTHER RAY 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 Ot R73.09 OTHER ABNORMAL GLUCOSE 10/28/2016 RONY RAY DO Ot J45.909 UNSPECIFIED ASTHMA, UNCOMPLICATED 10/28/2016 RONY RAY DO Ot R05 COUGH 10/29/2016 ZOHRA MARTINEZ MD Ot R05 COUGH 10/29/2016 ZOHRA MARTINEZ MD Ot Z79.899 OTHER LONGTERM (CURRENT) DRUG THERAPY 10/29/2016 ZOHRA MARTINEZ MD Ot R05 COUGH 10/29/2016 ZOHRA MARTINEZ MD Ot Z79.899 OTHER LONGTERM (CURRENT) DRUG THERAPY 10/30/2016 ZOHRA MARTINEZ MD Ot R05 COUGH 10/30/2016 ZOHRA MARTINEZ MD Ot Z79.899 OTHER LONGTERM (CURRENT) DRUG THERAPY 02/07/2017 RONY RAY DO Ot R07.89 OTHER CHEST PAIN 03/17/2017 RONY RAY DO Ot R07.89 OTHER CHEST PAIN 05/25/2017 CARLOS VIVAR 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 Ot V76.1 2 OTH SCREEN MAMMO-MALIGN NEOPLASM OF [place] 05/25/2017 LUTHER RAY 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 Ot 240.9 GOITER NOS 05/25/2017 LUTHER RAY 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 Ot 246.2 CYST OF THYROID 05/25/2017 LUTHER RAY 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 Ot 789.01 ABDOMINAL PAIN, RIGHT UPPER QUADRANT 05/25/2017 CARLOS VIVARP Ot V76.1 2 OTH SCREEN MAMMO-MALIGN NEOPLASM OF [place] 05/25/2017 CHAUNCEY ROWELL, VISH Fritz Ot 592.9 06/23/2017 W 784.40 VOI CE AND RESONANCE DISORDER, UNSPECIFIED 06/23/2017 W R49.9 UNSP ECIFIED VOICE AND RESONANCE DISORDER 06/23/2017 W 784.40 VOI CE AND RESONANCE DISORDER, UNSPECIFIED 06/23/2017 W 786.2 COUGH 06/23/2017 W R05 COUGH 06/23/2017 W R49.9 UNSP ECIFIED VOICE AND RESONANCE DISORDER 06/23/2017 W 784.40 VOI CE AND RESONANCE DISORDER, UNSPECIFIED 06/23/2017 A 786.2 COUGH 06/23/2017 A R05 COUGH 06/23/2017 W R49.9 UNSP ECIFIED VOICE AND RESONANCE DISORDER 07/22/2017 RONY RAY DO Ot R07.9 CHEST PAIN, UNSPECIFIED 07/22/2017 RACHEL CHILDRESS MD Ot K21.9 GASTRO-ESOPHAGEAL REFLUX DISEASE WITHOUT 07/22/2017 RACHEL CHILDRESS MD Ot Z01.81 8 ENCOUNTER FOR OTHER PREPROCEDURAL EXAMIN 07/22/2017 DREAD ARANGO NURSING TECHNICIAN Ot R05 COUGH 07/22/2017 DREAD ARANGO NURSING TECHNICIAN Ot R06.02 SHORTNESS OF BREATH 07/22/2017 DREAD ARANGO NURSING TECHNICIAN Ot R06.2 WHEEZING 07/22/2017 DREAD ARANGO NURSING TECHNICIAN Ot R05 COUGH 07/22/2017 DREAD ARANGO NURSING TECHNICIAN Ot R06.02 SHORTNESS OF BREATH 07/22/2017 DREAD ARANGO NURSING TECHNICIAN Ot R06.2 WHEEZING 07/22/2017 RONY RAY DO Ot R05 COUGH 07/22/2017 Ot J45.909 UN SPECIFIED ASTHMA, UNCOMPLICATED 07/22/2017 LAINEY ARMENDARIZ Ot J45.998 OTHER ASTHMA 07/22/2017 LAINEY ARMENDARIZ Ot R00.0 TACHYCARDIA, UNSPECIFIED 07/22/2017 LAINEY ARMENDARIZ Ot R00.2 PALPITATIONS 07/22/2017 LAINEY ARMENDARIZ Ot R06.00 DYSPNEA, UNSPECIFIED 07/22/2017 LUTHER RAY Ot R53.83 OTHER FATIGUE 07/22/2017 LUTHER RAYP Ot R60.9 EDEMA, UNSPECIFIED 07/22/2017 LUTHER RAYP Ot R73.09 OTHER ABNORMAL GLUCOSE 07/22/2017 RONY RAY DO Ot J45.909 UNSPECIFIED ASTHMA, UNCOMPLICATED 07/22/2017 RONY RAY DO Ot R05 COUGH 07/22/2017 RONY RAY DO Ot R07.89 OTHER CHEST PAIN 07/26/2017 CARLOS VIVAR Ot N63 UNSPECIFIED LUMP IN BREAST 07/27/2017 CARLOS VIVAR Ot N63 UNSPECIFIED LUMP IN BREAST 08/10/2017 CARLOS VIVAR Ot N63 UNSPECIFIED LUMP IN BREAST 08/17/2017 Edgar Cruz A 491.20 OBSTRUCTIVE CHRONIC BRONCHITIS, WITHOUT EXACERBATION 08/17/2017 Edgar Cruz J44.9 CHRONIC OBSTRUCTIVE PULMONARY DISEASE, UNSPECIFIED 09/12/2017 LUTHER RAY 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 Ot G47.10 HYPERSOMNIA, UNSPECIFIED 09/12/2017 LUTHER RAY L 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 Ot G47.33 OBSTRUCTIVE SLEEP APNEA (ADULT) (PEDIATR 09/12/2017 LUTHER RAY 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 Ot J84.10 PULMONARY FIBROSIS, UNSPECIFIED 09/12/2017 LUTHER RAY 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 Ot R06.83 SNORING 09/30/2017 GUILLERMINA VILLAGOMEZ APRN Ot J44 .9 CHRONIC OBSTRUCTIVE PULMONARY DISEASE, U 09/30/2017 GUILLERMINA VILLAGOMEZ APRN Ot R19 .7 DIARRHEA, UNSPECIFIED 09/30/2017 GUILLERMINA VILLAGOMEZ APRN Ot Z87.442 PERSONAL HISTORY OF URINARY CALCULI 09/30/2017 GUILLERMINA VILLAGOMEZ APRN Ot Z90.710 ACQUIRED ABSENCE OF BOTH CERVIX AND UTER 12/23/2017 CARLOS VIVAR 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 Ot V76.1 2 OTH SCREEN MAMMO-MALIGN NEOPLASM OF [place] 12/23/2017 MONIE RAYIA L 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 Ot 240.9 GOITER NOS 12/23/2017 MONIE RAYIA L 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 Ot 246.2 CYST OF THYROID 12/23/2017 MONIE RAYIA L 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 Ot 789.01 ABDOMINAL PAIN, RIGHT UPPER QUADRANT 12/23/2017 CARLOS VIVARP Ot V76.1 2 OTH SCREEN MAMMO-MALIGN NEOPLASM OF [place] 12/23/2017 VISH GROSSMAN MD Ot 592.9 12/23/2017 CARLOS VIVARP Ot V76.1 2 OTH SCREEN MAMMO-MALIGN NEOPLASM OF [place] 12/23/2017 MONIE RAYIA L 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 Ot 240.9 GOITER NOS 12/23/2017 MONIE RAYIA L 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 Ot 246.2 CYST OF THYROID 12/23/2017 MONIE RAYIA L 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 Ot 789.01 ABDOMINAL PAIN, RIGHT UPPER QUADRANT 12/23/2017 CARLOS VVIARP Ot V76.1 2 OTH SCREEN MAMMO-MALIGN NEOPLASM OF [place] 12/23/2017 VISH GROSSMAN MD, Ot 592.9 12/26/2017 Dany Ward 300.89 OTHER SOMATOFORM DISORDERS 12/26/2017 Dany Ward 515 POSTINFLAMMATORY PULMONARY FIBROSIS 12/26/2017 Dany Ward 786.05 SHORTNESS OF BREATH 12/26/2017 Dany Ward F45.8 OTHER SOMATOFORM DISORDERS 12/26/2017 Dany Ward J84.10 PULMONARY FIBROSIS, UNSPECIFIED 12/26/2017 Dany Ward R06.02 SHORTNESS OF BREATH 11/03/2018 RONY RAY DO Ot R07.9 CHEST PAIN, UNSPECIFIED 11/03/2018 RACHEL CHILDRESS MD Ot K21.9 GASTRO-ESOPHAGEAL REFLUX DISEASE WITHOUT 11/03/2018 RACHEL CHILDRESS MD Ot Z01.81 8 ENCOUNTER FOR OTHER PREPROCEDURAL EXAMIN 11/03/2018 DREAD ARANGO NURSING TECHNICIAN Ot R05 COUGH 11/03/2018 DREAD ARANGO NURSING TECHNICIAN Ot R06.02 SHORTNESS OF BREATH 11/03/2018 DREAD ARANGO NURSING TECHNICIAN Ot R06.2 WHEEZING 11/03/2018 DREAD ARANGO NURSING TECHNICIAN Ot R05 COUGH 11/03/2018 DREAD ARANGO NURSING TECHNICIAN Ot R06.02 SHORTNESS OF BREATH 11/03/2018 DREAD ARANGO NURSING TECHNICIAN Ot R06.2 WHEEZING 11/03/2018 RONY RAY DO Ot R05 COUGH 11/03/2018 Ot J45.909 UN SPECIFIED ASTHMA, UNCOMPLICATED 11/03/2018 LAINEY ARMENDARIZ Ot J45.998 OTHER ASTHMA 11/03/2018 LAINEY ARMENDARIZ Ot R00.0 TACHYCARDIA, UNSPECIFIED 11/03/2018 LAINEY ARMENDARIZ Ot R00.2 PALPITATIONS 11/03/2018 LAINEY ARMENDARIZ Ot R06.00 DYSPNEA, UNSPECIFIED 11/03/2018 LUTHER RAY 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 Ot R53.83 OTHER FATIGUE 11/03/2018 LUTHER RAY 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 Ot R60.9 EDEMA, UNSPECIFIED 11/03/2018 LUTHER RAY 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 Ot R73.09 OTHER ABNORMAL GLUCOSE 11/03/2018 RONY RAY DO Ot J45.909 UNSPECIFIED ASTHMA, UNCOMPLICATED 11/03/2018 RONY RAY DO Ot R05 COUGH 11/03/2018 RONY RAY DO Ot R07.89 OTHER CHEST PAIN 11/03/2018 CARLOS VIVAR 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 Ot N63 UNSPECIFIED LUMP IN BREAST 11/07/2018 JENNIFER PANCHAL MD ([facility]) Ot Z02.71 ENCOUNTER FOR DISABILITY DETERMINATION 11/09/2018 JENNIFER PANCHAL MD ([facility]) Ot Z02.71 ENCOUNTER FOR DISABILITY DETERMINATION 12/29/2018 CARLOS VIVAR 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 Ot V76.1 2 OTH SCREEN MAMMO-MALIGN NEOPLASM OF [place]ANY[place] 12/29/2018 LUTHER RAY 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 Ot 240.9 GOITER NOS 12/29/2018 LUTHER RAY 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 Ot 246.2 CYST OF THYROID 12/29/2018 LUTHER RAY 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 Ot 789.01 ABDOMINAL PAIN, RIGHT UPPER QUADRANT 12/29/2018 CARLOS VIVAR 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 Ot V76.1 2 OTH SCREEN MAMMO-MALIGN NEOPLASM OF [place]ANY[place] 12/29/2018 VISH GROSSMAN MD Ot 592.9 03/09/2019 RONY RAY DO Ot R07.9 CHEST PAIN, UNSPECIFIED 03/09/2019 RACHEL CHILDRESS MD Ot K21.9 GASTRO-ESOPHAGEAL REFLUX DISEASE WITHOUT 03/09/2019 RACHEL CHILDRESS MD Ot Z01.81 8 ENCOUNTER FOR OTHER PREPROCEDURAL EXAMIN 03/09/2019 DREAD ARANGO APRN Ot R05 COUGH 03/09/2019 DREAD ARANGO APRN Ot R06.02 SHORTNESS OF BREATH 03/09/2019 DREAD ARANGO APRN Ot R06.2 WHEEZING 03/09/2019 DREAD ARANGO APRN Ot R05 COUGH 03/09/2019 DREAD ARANGO NURSING TECHNICIAN Ot R06.02 SHORTNESS OF BREATH 03/09/2019 DREAD ARANGO APRN Ot R06.2 WHEEZING 03/09/2019 RONY RAY DO Ot R05 COUGH 03/09/2019 Ot J45.909 UN SPECIFIED ASTHMA, UNCOMPLICATED 03/09/2019 LAINEY ARMENDARIZ Ot J45.998 OTHER ASTHMA 03/09/2019 LAINEY ARMENDARIZ Ot R00.0 TACHYCARDIA, UNSPECIFIED 03/09/2019 LAINEY ARMENDARIZ Ot R00.2 PALPITATIONS 03/09/2019 LAINEY ARMENDARIZ Ot R06.00 DYSPNEA, UNSPECIFIED 03/09/2019 RAYLUTHER NARVAEZ 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 Ot R53.83 OTHER FATIGUE 03/09/2019 LUTHER RAY 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 Ot R60.9 EDEMA, UNSPECIFIED 03/09/2019 RAYLUTHER NARVAEZ 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 Ot R73.09 OTHER ABNORMAL GLUCOSE 03/09/2019 RONY RAY DO Ot J45.909 UNSPECIFIED ASTHMA, UNCOMPLICATED 03/09/2019 FLOR GUAJARDO, RONY Daniel Ot R05 COUGH 03/09/2019 RAY DO, RONY María Ot R07.89 OTHER CHEST PAIN 03/09/2019 CARLOS VIVAR Ot N63 UNSPECIFIED LUMP IN BREAST 03/09/2019 JENNIFER PANCHAL MD ([facility]) Ot Z02.71 ENCOUNTER FOR DISABILITY DETERMINATION 03/10/2019 CARLOS VIVAR Ot N76.0 ACUTE VAGINITIS 03/10/2019 CARLOS VIVAR Ot Z01.4 19 ENCNTR FOR [place] OPERATOR EXAM (GENERAL) (ROUTINE) 03/10/2019 CARLOS VIVARP Ot Z12.3 1 ENCNTR SCREEN MAMMOGRAM FOR MALIGNANT NE 03/10/2019 LUTHER RAY 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 Ot E07.9 DISORDER OF THYROID, UNSPECIFIED 03/15/2019 LUTHER RAY 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 Ot E07.9 DISORDER OF THYROID, UNSPECIFIED 04/19/2019 CARLOS VIVAR Ot N76.0 ACUTE VAGINITIS 04/19/2019 CARLOS VIVAR Ot Z01.4 19 ENCNTR FOR [place] OPERATOR EXAM (GENERAL) (ROUTINE) 04/19/2019 CARLOS VIVARP Ot Z12.3 1 ENCNTR SCREEN MAMMOGRAM FOR MALIGNANT NE 04/19/2019 LUTHER RAY 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 Ot E07.9 DISORDER OF THYROID, UNSPECIFIED 01/03/2020 RAY , RONY Daniel Ot R07.9 CHEST PAIN, UNSPECIFIED 01/03/2020 RACHEL CHILDRESS MD Ot K21.9 GASTRO-ESOPHAGEAL REFLUX DISEASE WITHOUT 01/03/2020 RACHEL CHILDRESS MD Ot Z01.81 8 ENCOUNTER FOR OTHER PREPROCEDURAL EXAMIN 01/03/2020 NBA, DREAD E NURSING TECHNICIAN Ot R05 COUGH 01/03/2020 NBA, DREAD E NURSING TECHNICIAN Ot R06.02 SHORTNESS OF BREATH 01/03/2020 NBA, DREAD E NURSING TECHNICIAN Ot R06.2 WHEEZING 01/03/2020 NBA, DREAD E NURSING TECHNICIAN Ot R05 COUGH 01/03/2020 NBA, DREAD E NURSING TECHNICIAN Ot R06.02 SHORTNESS OF BREATH 01/03/2020 NBA, DREAD E NURSING TECHNICIAN Ot R06.2 WHEEZING 01/03/2020 RAY DO, RONY Daniel Ot R05 COUGH 01/03/2020 Ot J45.909 UN SPECIFIED ASTHMA, UNCOMPLICATED 01/03/2020 LAINEY ARMENDARIZ Ot J45.998 OTHER ASTHMA 01/03/2020 LAINEY ARMENDARIZ Ot R00.0 TACHYCARDIA, UNSPECIFIED 01/03/2020 LAINEY ARMENDARIZ Ot R00.2 PALPITATIONS 01/03/2020 LAINEY ARMENDARIZ Ot R06.00 DYSPNEA, UNSPECIFIED 01/03/2020 LUTHER RAY Ot R53.83 OTHER FATIGUE 01/03/2020 MONIE RAYIA Chava 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 Ot R60.9 EDEMA, UNSPECIFIED 01/03/2020 RAY, LUTHER L 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 Ot R73.09 OTHER ABNORMAL GLUCOSE 01/03/2020 FLOR GUAJARDO, RONY Daniel Ot J45.909 UNSPECIFIED ASTHMA, UNCOMPLICATED 01/03/2020 RONY RAY DO Ot R05 COUGH 01/03/2020 FLOR GUAJARDO, RONY Daniel Ot R07.89 OTHER CHEST PAIN 01/03/2020 CARLOS VIVAR Ot N63 UNSPECIFIED LUMP IN BREAST 01/03/2020 JENNIFER PANCHAL MD ([facility]) Ot Z02.71 ENCOUNTER FOR DISABILITY DETERMINATION 01/03/2020 QUICK, CARLOS W 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 Ot N76.0 ACUTE VAGINITIS 01/03/2020 CARLOS VIVAR 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 Ot Z01.4 19 ENCNTR FOR [place] OPERATOR EXAM (GENERAL) (ROUTINE) 01/03/2020 CARLOS VIVAR 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 Ot Z12.3 1 ENCNTR SCREEN MAMMOGRAM FOR MALIGNANT NE 01/03/2020 CHARLES RAYRICIA L 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 Ot E07.9 DISORDER OF THYROID, UNSPECIFIED 01/14/2020 RAY, LUTHER L 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 Ot D72.1 EOSINOPHILIA 01/14/2020 RAY, LUTHER L 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 Ot J45.909 UNSPECIFIED ASTHMA, UNCOMPLICATED 01/31/2020 RAY, LUTHER L 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 Ot D72.1 EOSINOPHILIA 01/31/2020 RAY, LUTHER L 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 Ot J45.909 UNSPECIFIED ASTHMA, UNCOMPLICATED 01/31/2020 RAY, LUTHER L 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 Ot D72.1 EOSINOPHILIA 01/31/2020 RAY, LUTHER L 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 Ot J45.909 UNSPECIFIED ASTHMA, UNCOMPLICATED 02/21/2020 RAY, LUTHER L 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 Ot D72.1 EOSINOPHILIA 02/21/2020 RAY, LUTHER L 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 Ot J45.909 UNSPECIFIED ASTHMA, UNCOMPLICATED 02/28/2020 RAY, LUTHER L 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 Ot D72.1 EOSINOPHILIA 02/28/2020 RAY, LUTHER L 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 Ot J45.909 UNSPECIFIED ASTHMA, UNCOMPLICATED 02/28/2020 RAY, LUTHER L 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 Ot D72.1 EOSINOPHILIA 02/28/2020 RAY, LUTHER L 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 Ot J45.909 UNSPECIFIED ASTHMA, UNCOMPLICATED 03/05/2020 RACHEL CHILDRESS MD Ot N20.0 CALCULUS OF KIDNEY 03/20/2020 RACHEL CHILDRESS MD Ot N20.0 CALCULUS OF KIDNEY 03/28/2020 RAY, LUTHER L 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 Ot D72.1 EOSINOPHILIA 03/28/2020 RAY, LUTHER L 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 Ot J45.909 UNSPECIFIED ASTHMA, UNCOMPLICATED Procedures Code Description Performed By Per formed On 56.0 TU RE MOV URETER OBSTRUCT 03/18/2015 [id number] ME ASURE OF CARDIAC SAMPL PRESSURE, L H 12/11/2015 [id number] FL UOROSCOPY OF MULT COR ART USING L OSM 12/11/2015 Results Test Result Range Complete blood count (CBC) with automate d white blood cell (WBC) differential - 10/28/16 13:00 Blood leukocytes automated count (number/volume) 9.7 10*3/uL 4.3-11.0 Blood erythrocytes automated count (number/volume) 5.20 10*6/uL 4.35-5.85 Venous blood hemoglobin measurement (mass/volume) 14.3 g/dL 11.5-16.0 Blood hematocrit (volume fraction) 42 % 35-52 Automated erythrocyte mean corpuscular volume 81 [ foz_us] 80-99 Automated erythrocyte mean corpuscular h emoglobin (mass per erythrocyte) 28 pg 25-34 Automated erythrocyte mean corpuscular h emoglobin concentration measurement (mass/volume) 34 g/dL 32-36 Automated erythrocyte distribution width ratio 13. 6 % 10.0- 14.5 Automated blood platelet count (count/volume) 274 10*3/uL 130-400 Automated blood platelet mean volume measurement 9.7 [foz_us] 7.4-10.4 Automated blood neutrophils/100 leukocytes 87 % 42-75 Automated blood lymphocytes/100 leukocytes 11 % 12-44 Blood monocytes/100 leukocytes 1 % 0-12 Automated blood eosinophils/100 leukocytes 1 % 0-10 Automated blood basophils/100 leukocytes 0 % 0-10 Blood neutrophils automated count (number/volume) 8.4 10*3 1.8-7.8 Blood lymphocytes automated count (number/volume) 1.1 10*3 1.0-4.0 Blood monocytes automated count (number/volume) 0. 1 10*3 0.0-1.0 Automated eosinophil count 0.1 10*3/uL 0 .0-0.3 Automated blood basophil count (count/volume) 0.0 10*3/uL 0.0-0.1 Comprehensive metabolic panel - 10/28/16 13:00 Serum or plasma sodium measurement (moles/volume) 137 mmol/L 135-145 Serum or plasma potassium measurement (moles/volume) 3.1 mmol/L 3.6-5.0 Serum or plasma chloride measurement (moles/volume) 106 mmol/L 98-107 Carbon dioxide 16 mmol/L 21-32 Serum or plasma anion gap determination (moles/volume) 15 mmol/L 5-14 Serum or plasma urea nitrogen measurement (mass/volume ) 9 mg/dL 7-18 Serum or plasma creatinine measurement (mass/volume) 0.88 mg/dL 0.60-1.30 Serum or plasma urea nitrogen/creatinine mass ratio 10 NRG Serum or plasma creatinine measurement w ith calculation of estimated glomerular filtration rate > NRG Serum or plasma glucose measurement (mass/volume) 171 mg/dL 70-105 Serum or plasma calcium measurement (mass/volume) 9.3 mg/dL 8.5-10.1 Serum or plasma total bilirubin measurement (mass/volu me) 0.4 mg/dL 0.1-1.0 Serum or plasma alkaline phosphatase mare surement (enzymatic activity/volume) 85 U/L 40-136 Serum or plasma aspartate aminotransfera se measurement (enzymatic activity/volume) 14 U/L 5-34 Serum or plasma alanine aminotransferase measurement (enzymatic activity/volume) 15 U/L 0-55 Serum or plasma protein measurement (mass/volume) 6.7 g/dL 6.4-8.2 Serum or plasma albumin measurement (mass/volume) 4.2 g/dL 3.2-4.5 Blood manual differential performed dete ction - 10/28/16 13:00 Blood monocytes/100 leukocytes 2 % NRG Manual blood segmented neutrophils/100 leukocytes 87 % NRG Manual blood lymphocytes/100 leukocytes 10 % NRG Blood lymphocytes variant/100 leukocytes 1 % NRG Complete blood count (CBC) with automate d white blood cell (WBC) differential - 09/30/17 16:30 Blood leukocytes automated count (number/volume) 14.5 10*3/uL 4.3-11.0 Blood erythrocytes automated count (number/volume) 5.47 10*6/uL 4.35-5.85 Venous blood hemoglobin measurement (mass/volume) 14.7 g/dL 11.5-16.0 Blood hematocrit (volume fraction) 43 % 35-52 Automated erythrocyte mean corpuscular volume 79 [ foz_us] 80-99 Automated erythrocyte mean corpuscular h emoglobin (mass per erythrocyte) 27 pg 25-34 Automated erythrocyte mean corpuscular h emoglobin concentration measurement (mass/volume) 34 g/dL 32-36 Automated erythrocyte distribution width ratio 14. 2 % 10.0- 14.5 Automated blood platelet count (count/volume) 356 10*3/uL 130-400 Automated blood platelet mean volume measurement 9.7 [foz_us] 7.4-10.4 Automated blood neutrophils/100 leukocytes 91 % 42-75 Automated blood lymphocytes/100 leukocytes 4 % 12-44 Blood monocytes/100 leukocytes 4 % 0-12 Automated blood eosinophils/100 leukocytes 1 % 0-10 Automated blood basophils/100 leukocytes 0 % 0-10 Blood neutrophils automated count (number/volume) 13.1 10*3 1.8-7.8 Blood lymphocytes automated count (number/volume) 0.6 10*3 1.0-4.0 Blood monocytes automated count (number/volume) 0. 6 10*3 0.0-1.0 Automated eosinophil count 0.1 10*3/uL 0 .0-0.3 Automated blood basophil count (count/volume) 0.0 10*3/uL 0.0-0.1 Blood manual differential performed dete ction - 09/30/17 16:30 Blood monocytes/100 leukocytes 3 % NRG Manual blood segmented neutrophils/100 leukocytes 90 % NRG Blood band neutrophils/100 leukocytes 0 % NRG Manual blood lymphocytes/100 leukocytes 7 % NRG Manual eosinophils/100 leukocytes in nose 0 % NRG Manual blood basophils/100 leukocytes 0 % NRG Blood erythrocyte morphology finding identification [facility] Comprehensive metabolic panel - 09/30/17 16:30 Serum or plasma sodium measurement (moles/volume) 139 mmol/L 135-145 Serum or plasma potassium measurement (moles/volume) 4.1 mmol/L 3.6-5.0 Serum or plasma chloride measurement (moles/volume) 104 mmol/L 98-107 Carbon dioxide 25 mmol/L 21-32 Serum or plasma anion gap determination (moles/volume) 10 mmol/L 5-14 Serum or plasma urea nitrogen measurement (mass/volume ) 11 mg/dL 7-18 Serum or plasma creatinine measurement (mass/volume) 0.84 mg/dL 0.60-1.30 Serum or plasma urea nitrogen/creatinine mass ratio 13 NRG Serum or plasma creatinine measurement w ith calculation of estimated glomerular filtration rate > NRG Serum or plasma glucose measurement (mass/volume) 120 mg/dL 70-105 Serum or plasma calcium measurement (mass/volume) 9.7 mg/dL 8.5-10.1 Serum or plasma total bilirubin measurement (mass/volu me) 0.5 mg/dL 0.1-1.0 Serum or plasma alkaline phosphatase mare surement (enzymatic activity/volume) 111 U/L 40-136 Serum or plasma aspartate aminotransfera se measurement (enzymatic activity/volume) 18 U/L 5-34 Serum or plasma alanine aminotransferase measurement (enzymatic activity/volume) 16 U/L 0-55 Serum or plasma protein measurement (mass/volume) 7.8 g/dL 6.4-8.2 Serum or plasma albumin measurement (mass/volume) 4.1 g/dL 3.2-4.5 Lipase - 09/30/17 16:30 Lipase 17 U/L 8-78 Complete urinalysis with reflex to cultu re - 09/30/17 18:15 Urine color determination YELLOW NRG Urine clarity determination CLEAR NR G Urine pH measurement by test strip 6 5-9 Specific gravity of urine by test strip 1.015 1.016-1.022 Urine protein assay by test strip, semi-quantitative 1+ NEGATIVE Urine glucose detection by automated test strip NE GATIVE NEGATIVE Erythrocytes detection in urine sediment by light micr oscopy NEGATIVE NEGATIVE Urine ketones detection by automated test strip 1+ NEGATIVE Urine nitrite detection by test strip NEGATIVE NEGATIVE Urine total bilirubin detection by test strip NEGA TIVE NEGATIVE Urine urobilinogen measurement by automated test strip (mass/volume) NORMAL NORMAL Urine leukocyte esterase detection by dipstick NEG ATIVE NEGATIVE Automated urine sediment erythrocyte cou nt by microscopy (number/high power field) NONE NRG Automated urine sediment leukocyte count by microscopy (number/high power field) RARE NRG Bacteria detection in urine sediment by light microsco py FEW NRG Squamous epithelial cells detection in u rine sediment by light microscopy 10-25 NRG Crystals detection in urine sediment by light microsco py NONE NRG Casts detection in urine sediment by light microscopy NONE NRG Mucus detection in urine sediment by light microscopy SMALL NRG Complete urinalysis with reflex to culture NO NRG Arterial Blood Gas - 12/26/17 14:10 Base -4.00 mmol/L 1.80-4.20 HCO3 17 mmol/L 20-31 O2 Sat 99 room air % 95-100 pCO2 15 mm/Hg 35-45 pH 7.65 7.35-7.45 PO2 99 mm/Hg 80-95 Comprehensive Metabolic Panel - 12/26/17 14:10 Albumin 3.7 g/dL 3.6-5.1 ALP 98 U/L 35-130 ALT 20 U/L 6-45 Anion Gap 16 6-14 AST 15 U/L 2-40 BUN 8 mg/dL 5-25 Calcium 9.1 mg/dL 8.3-10.4 Chloride 110 mmol/L 95-114 CO2 14 mEq/L 22-33 Creat 0.71 mg/dL 0.50-1.50 eGFR 88 mL/min/1.73m2 >59 Globulin 3.1 g/dL 2.3-3.5 Glucose 83 mg/dL 70-110 Osmo 279 280-295 Potassium 4.4 mmol/L 3.5-5.3 Sodium 136 mmol/L 134-148 TBil 0.4 mg/dL 0.2-1.2 TP 6.8 g/dL 6.0-8.3 EKG - 12/26/17 14:10 EKG Complete D-Dimer - 12/26/17 14:39 DDimer 56.00 ng/mL 21.00-229.00 Encounters ACCT No. Visit Date/Time Discharge Status Pt. Type Provider Facility Loc./Unit Complaint [id number] 10/22/2014 15:10:00 10/22/2014 23:59: 59 CLS Outpatient CONCHA HAMILTON DO [id number] 12/26/2017 13:51:00 12/26/2017 16:00: 00 [id number] 05/18/2017 08:17:00 08/17/2017 14:00: 00 DIS Outpatient Edgar Cruz [id number] 05/17/2017 14:06:00 05/17/2017 23:59: 00 DIS Outpatient Edgar Cruz [id number] 12/26/2017 14:14:29 Document Registration [id number] 05/19/2017 08:16:00 Document Registration [id number] 03/28/2020 12:48:00 020 00:01:00 DIS Outpatient LUTHER RAY [facility] SEVERE ASTHMA [id number] 02/28/2020 13:48:00 020 23:59:59 CLS Outpatient RACHEL CHILDRESS MD Via [facility] RAD RT FLANK PAIN [id number] 03/09/2019 08:48:00 019 23:59:59 CLS Outpatient LUTHER RAY Via [facility] RAD THYROID DISORDE R [id number] 03/09/2019 08:46:00 019 23:59:59 CLS Outpatient CARLOS VIVAR 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 [facility] RAD SCREENING [id number] 11/03/2018 14:30:00 019 23:59:59 CLS Outpatient JENNIFER PANCHAL MD (DDU) [facility] RT LUNG FIBROSIS [id number] 10/12/2018 10:27:00 018 23:59:59 CLS Preadmit RONY RAY DO [facility] RAD SCREEN [id number] 09/30/2017 16:12:00 017 19:38:00 DIS Emergency GUILLERMINA VILLAGOMEZ NURSING TECHNICIAN Via [facility] ER DIARRHEA/PASSING OUT [id number] 09/12/2017 09:13:00 017 09:20:00 DIS Outpatient LUTHER RAYP [facility] SLEEP G47.33 CENTRAL SPEEP APNEA [id number] 07/25/2017 07:48:00 017 23:59:59 CLS Outpatient CARLOS VIVARP [facility] RAD LUMP OF RT BREAST N63 [id number] 02/04/2017 10:27:00 017 23:59:59 CLS Outpatient RONY RAY DO [facility] RAD R07.89 [id number] 10/28/2016 12:43:00 016 14:15:00 DIS Emergency ZOHRA MARTINEZ MD Via [facility] ER ASTHMA [id number] 07/16/2016 11:36:00 016 23:59:59 CLS Outpatient RONY RAY DO [facility] RAD ASTHMA/COUGH [id number] 06/25/2016 08:37:00 23:59:59 CLS Outpatient SHARDA ARMENDARIZ [facility] CARD DYPNEA, TAC KACARDIA, HTN HLP [id number] 03/01/2016 11:04:00 23:59:59 CLS Outpatient LUTHER RAY [facility] LAB FATIGUE,EDEMA [id number] 12/19/2015 16:44:00 23:59:59 CLS Outpatient RONY RAY DO [facility] LAB CHRONIC COUGH [id number] 12/10/2015 11:34:00 19:13:00 DIS Inpatient ANA OSORIO DO [facility] 4TH STATUS ASTHMATICUS, MONO LED OP [place] [id number] 12/05/2015 10:06:00 23:59:59 CLS Outpatient DREAD ARANGO APRN [facility] RT COUGH,SOB,WHEEZ ING [id number] 11/26/2015 10:22:00 23:59:59 CLS Outpatient DREAD ARANGO APRN [facility] LAB SHORT OF BREATH,WHEEZING,COUGH [id number] 11/05/2015 09:56:00 13:15:00 DIS Outpatient RACHEL CHILDRESS MD [facility] SDC REFLUX [id number] 10/28/2015 05:33:00 23:59:59 CLS Outpatient RACHEL CHILDRESS MD [facility] PREOP REFLEX [id number] 10/02/2015 08:13:00 23:59:59 CLS Outpatient RONY RAY DO Via [facility] RAD CHEST PAIN [id number] 07/14/2015 08:30:00 23:59:59 CLS Preadmit CHAUNCEY ROWELL, VISH valadez [facility] RAD STONES [id number] 04/14/2015 08:06:00 00:01:00 DIS Outpatient VISH GROSSMAN MD [facility] RAD STONES [id number] 04/24/2015 07:12:00 23:59:59 CLS Outpatient CARLOS VIVAR Via [facility] RAD SCREENING [id number] 03/16/2015 17:51:00 15:40:00 DIS Inpatient RONY RAY DO Via [facility] SURGICAL PROXIMAL R URET ERAL STONE [id number] 03/08/2015 01:56:00 06:12:00 DIS Emergency RONY SORIANO DO Via [facility] ER ABD PAIN [id number] 03/05/2015 16:04:00 23:59:59 CLS Outpatient LUTHER RAY Via [facility] RAD RIGHT UPPER MARIVEL DRANT PAIN [id number] 03/11/2014 13:18:00 23:59:59 CLS Outpatient LUTHER RAY Via [facility] RAD THYROMEGALY [id number] 02/13/2014 11:09:00 23:59:59 CLS Outpatient CARLOS VIVAR Via [facility] RAD SCREENING [id number] 04/24/2020 12:00:00 P EN Preadmit RONY RAY DO Via [facility] SDC SEVERE ASTHMA [id number] 12/23/2015 15:29:00 Document Registration
--- OUTSIDE RECORDS SUMMARY | 2020-04-03 14:26 | XMS REPORT ---
Author Author [employer] [facility] Context Labs [facility] [employer] [facility] Address [address] [place] [address] Care Team Providers Care Floor Plan Adjuster Name Role Phone RONY RAY Unavailable DANNIDARIEL RAYMUNDO Unavailable RONY RAY Unavailable LUTHER RAY MACHINE ENGINEER DNP Unavailable UnavailVISH Martinez MD Unavailable Unavailable QUICK, CARLOS W MACHINE ENGINEER Unavailable Unavailable KIM KNOTT DO Unavailable Unavailable RONY SORIANO DO Unavailable Unavailable RONY RAY DO Unavailable Unavailable RONY RAY DO Unavailable Unavailable ZOHRA MARTINEZ MD Unavailable Unavailable LUTHER RAY MACHINE ENGINEER DNP Unavailable Unavailabl e QUICK, CARLOS W MACHINE ENGINEER Unavailable Unavailable QUICK MACHINE ENGINEER, CARLOS W Unavailable Unavailable RAYLUTHER RESENDIZ DNP Unavailable Unavailable LAINEY ARMENDARIZ Unavailable Unavailab le JO DO, ANA Unavailable Unavailable JO DO, ANA Unavailable Unavailable RONY RAY DO J Unavailable Unavailable RACHEL CHILDRESS MD Unavailable Unavailable GUILLERMINA VILLAGOMEZ APRN Unavailable Unavailable ZOHRA MARTINEZ MD Unavailable Unavailable JENNIFER PANCHAL MD (DDU) Unavailable Unavailable DREAD ARANGO APRN Unavailable Unavailable STEPHANIE ZAMAN MD Unavailable Unavailable STEPHANIE ZAMAN MD Unavailable Unavailable STEPHANIE ZAMAN MD Unavailable Unavailable Migration, Doctor Unavailable Unavailable OSORIO DO, ANA S Unavailable Unavailable OSORIO DO, ANA S Unavailable Unavailable GUILLERMINA VILLAGOMEZ APRN Unavailable Unavailable ROBIN CHONG DO Unavailable Unavailable Unavailable Unavailable Unavailable Unavailable Unavailable Unavailable Allergies Normalized Allergy Reported Date of Reaction(s) Care Provider Facility Allergy Type classification allergen Allergy Onset DA (20 Unclassified Tetanus 05-08-2012 - no information PATRI RIGO Not Available sources.) Vaccines and RAY (59065) Toxoid Medications The data below is from unstructured sources Unknown Medications No Known Medications Problems Active Problems Problem Normalized Date Last Normalized Normalized Provider Fa cility Classification Problem(s) Recorded Problem Problem Sta tus Duration Abdominal pain Abdominal Episodic Active LUTHER Not Malka ilable (8 sources.) pain, RAY (45296) unspecified site Translations: [ ABDOMINAL PAIN, RIGHT UPPER QUADRANT] Residual Acquired Episodic Active GUILLERMINA VILLAGOMEZ , [facility] Via codes; absence of CONSTANZA Maloney unclassified both cervix Hospital - (4 sources.) and uterus [place] (55043) Inflammatory Acute Episodic Active CARLOS QUICK , [facility] Via diseases of vaginitis MACHINE ENGINEER [facility] female pelvic Hospital - organs (3 [place] sources.) (06730) Coronary Atheroscleroti Chronic Active ANA OSORIO , [facility] Via atherosclerosi c heart DO [facility] s and other disease of Hospital - heart disease [place] (3 sources.) coronary (04937) artery without angina pectoris Nonspecific Chest pain, Episodic Active RONY [facility] Via chest pain (9 unspecified DO [place] RAY sources.) Translations: Hospital - [ OTHER CHEST [place] PAIN] (88759) Chronic Chronic Chronic Active GUILLERMINA VILLAGOMEZ , [facility] Via obstructive obstructive CONSTANZA Maloney pulmonary pulmonary Hospital - disease and disease, [place] bronchiectasis unspecified (22852) (4 sources.) Other lower Cough Episodic Active DREAD Not Availab le respiratory NBA (32958) disease (21 sources.) Abdominal Diaphragmatic Episodic Active TAKAAKI KIDO , [facility] Via hernia (6 hernia without MD [place] sources.) obstruction or Hospital - gangrene [place] (26236) Other Diarrhea, Episodic Active GUILLERMINA VILLAGOMEZ , [facility] Via gastrointestin unspecified LONG TERM CARE ADMINISTRATORChelsey Maloney al disorders Hospital - (7 sources.) [place] (03553) Thyroid Disorder of Episodic Active LUTHER [facility] Via disorders (3 thyroid, RAY [place] sources.) unspecified Hospital - [place] (17314) Other lower Dyspnea, Episodic Active LAINEY [facility] Via respiratory unspecified WOOTEN-ANDERSO [place] disease (4 N , [place] Hospital - sources.) [place] (71110) Residual Edema, Episodic Active LUTHER [facility] Via codes; unspecified THOMAS RAY unclassified Hospital - (3 sources.) [place] (27759) Administrative Encounter for Episodic Active JENNIFER ANSLEY , [facility] Via /social disability (DDU) [facility] admission (4 determination Hospital - sources.) [place] (84480) Diseases of Eosinophilia 03-27-2020 - Chronic Active LUTHER [facility] Via white blood THOMAS RAY cells (12 Hospital - sources.) [place] (93879) Esophageal Esophageal Chronic Active RONY Not Availa ble disorders (12 reflux DO FL[facility] (61572) sources.) Translations: [ GASTRO-ESOPHAG EAL REFLUX DISEASE WITH ES, GASTRO-ESOPHAG EAL REFLUX DISEASE WITHOUT] Gastritis and Gastritis, Episodic Active RACHEL KIDO , [facility] Via duodenitis (3 unspecified, MD [place] sources.) without Hospital - bleeding [place] (12567) Thyroid Goiter, no information Active LUTHER Not Avai lable disorders (6 unspecified [facility] (56215) sources.) Translations: [ CYST OF THYROID] Other diseases Hydronephrosis Episodic Active RONY ANN N Not Available of kidney and , DO (19621) ureters (8 sources.) Residual Hypersomnia, Chronic Active LUTHER [facility] Via codes; unspecified THOMAS RAY unclassified Hospital - (1 source.) [place] (88324) Fluid and Hypokalemia Episodic Active ANA OSORIO , [facility] V ia electrolyte DO [place] disorders (3 Hospital - sources.) [place] (39511) Residual Obstructive Chronic Active LUTHER [facility] Via codes; sleep apnea THOMAS RAY unclassified (adult) Hospital - (2 sources.) (pediatric) [place] (02739) Unclassified Obstructive Chronic Active LUTHER Not [place]alk[place] ilable (3 sources.) sleep apnea [facility] (48013) (adult) (pediatric) Translations: [ HYPERSOMNIA, UNSPECIFIED] Diabetes Other abnormal Episodic Active LUTHER [facility] Via mellitus glucose THOMAS RAY without Hospital - complication [place] (3 sources.) (14144) Malaise and Other fatigue Episodic Active LUTHER [facility] Vi a fatigue (3 THOMAS RAY sources.) Hospital - [place] (89465) Other Other long Episodic Active ZOHRA ODGERS [facility] Via aftercare (4 term (current) , MD [place] sources.) drug therapy [facility] - [place] (57761) Unclassified Other Episodic Active CARLOS QUICK Not Availa ble (11 sources.) screening (83316) mammogram Translations: [ ENCNTR SCREEN MAMMOGRAM FOR MALIGNANT NE] Pulmonary Other Chronic Active ANA OSORIO , [facility] Via heart disease secondary DO [place] (3 sources.) pulmonary Hospital - hypertension [place] (08710) Cardiac Palpitations Episodic Active ANA OSORIO , [facility] Via dysrhythmias Translations: DO [place] (11 sources.) [ TACHYCARDIA, Hospital - UNSPECIFIED, [place] TACHYCARDIA, (94927) UNSPECIFIED] 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 FLOR DO (63454) (4 sources.) ar tachycardia Other lower Pulmonary Chronic Active LUTHER [facility] Via respiratory fibrosis, RAY , THOMAS [place] disease (5 unspecified Hospital - sources.) [place] (89471) Other lower Shortness of Episodic Active DREAD [facility] Via respiratory breath NBA , CONSTANZA Maloney disease (7 Hospital - sources.) [place] (17084) Other lower Snoring Episodic Active LUTHER [facility] Via respiratory RAYTHOMAS NARVAEZ disease (5 Hospital - sources.) [place] (52345) Thyroid Thyrotoxicosis Chronic Active ANA OSORIO , [facility] Via disorders (6 , unspecified DO [place] sources.) without Hospital - thyrotoxic [place] crisis or (98180) storm Translations: [ NONTOXIC SINGLE THYROID NODULE, NONTOXIC SINGLE THYROID NODULE] Adjustment Unspecified Chronic Active RONY Not Avail able disorders (4 adjustment RAY , DO (27287) sources.) reaction Asthma (22 Unspecified 03-27-2020 - Chronic Active ANA GARN ER , [facility] Via sources.) asthma, DO [facility] uncomplicated Hospital - Translations: [place] [ OTHER (78302) ASTHMA, SEVERE PERSISTENT ASTHMA WITH STATUS AST] Nonmalignant Unspecified Episodic Active CARLOS QUICK , [facility] V ia breast lump in breast MACHINE ENGINEER [place] conditions (5 Hospital - sources.) [place] (54124) Other lower Wheezing Episodic Active DREAD [facility] Via respiratory NBA , LONG TERM CARE ADMINISTRATOR [place] disease (7 Hospital - sources.) [place] (32920) Past or Other Problems Problem Normalized Date Last Normalized Normalized Provider Fa cility Classification Problem(s) Recorded Problem Problem Sta tus Duration Other lower Cough Episodic Completed UNLISTED Not Availab le respiratory UNLISTED (13548) disease (2 sources.) Residual Hypersomnia, no information no information LUTHER Not Available codes; unspecified RAY (43728) unclassified (3 sources.) Other upper Unspecified Episodic Completed UNLISTED Not Avai lable respiratory voice and UNLISTED (49121) disease (3 resonance sources.) disorder Other upper Voice and Episodic Completed UNLISTED Not Availa ble respiratory resonance UNLISTED (68040) disease (3 disorder, sources.) unspecified Unclassified no information no information no information no na me no information (2 sources.) Unclassified no information no information no information VISH GROSSMAN , Not Available (1 source.) (68278) Procedures Procedure Normalized Procedure Procedure Result Performer Facility Date 12-11-2015 FLUOROSCOPY OF MULT no information no name [facility] ART USING [facility] (03669) FLUOROSCOPY OF MULT no information no name Not Availa ble (12984) COR ART USING [facility] 12-11-2015 MEASURE OF CARDIAC no information no name [facility] SAMPL PRESSURE, L H [facility] (49861) MEASURE OF CARDIAC no information no name Not Availab le (10190) SAMPL PRESSURE, L H Transurethral removal no information no name Not Avai lable (39282) of obstruction from ureter and renal pelvis Immunizations The data below is from unstructured sources Name Given Type Tetanus Booster (TDap) Unknown Historical No Known Immunizations Results Test Name Value Interpretation Reference Range Date Time Fa cility (Normalized) (Normalized) (Medline Reference) laboratory on 2020-04-03 Anion gap 11 mmol/L (NEG) 3 - 11 mmol/L 04-03-2020 PENDING LOCATION [Moles/Vol] 08:00-0400 [facility] (30598) Basophils (Bld) 0.0 10*3/uL (NEG) 0 - 0.3 10*3/uL 04-03-2020 PENDING LOCATION [#/Vol] 08:00-0400 [facility] (67971) Basophils/100 0 % (NEG) 0.5 - 1 % 04-03-2020 PENDING LOCATION WBC (Bld) 08:00-0400 [facility] (24907) Calcium 9.1 mg/dL (NEG) 8.5 - 10.2 mg/dL 04-03-2020 PENDI NG LOCATION [Mass/Vol] 08:00-0400 [facility] (79675) Chloride 106 mmol/L (NEG) 95 - 106 mmol/L 04-03-2020 PENDI LOCATION [Moles/Vol] 08:00-0400 [facility] (40106) CO2 [Moles/Vol] 23 mmol/L (NEG) 23 - 29 mmol/L 04-03-2020 P ENDING LOCATION 08:00-0400 [facility] (90667) Creatinine 0.89 mg/dL (NEG) 04-03-2020 PENDING LOCATI ON [Mass/Vol] 08:00-0400 [facility] (60544) Creatinine and > (no code) 04-03-2020 PENDING LOC ATION Glomerular 08:00-0400 [facility] (33967) filtration rate.predicted panel - Serum, Plasma or Blood Eosinophils 0.1 10*3/uL (NEG) 0.05 - 0.5 04-03-2020 PENDING LOCATION (Bld) [#/Vol] 10*3/uL 08:00-0400 [facility] (49060) Eosinophils/100 1 % (NEG) 1 - 4 % 04-03-2020 [facility] LOCATION WBC (Bld) 08:00-0400 [facility] (35356) Erythrocyte 13.8 % (NEG) 11.6 - 14.6 % 04-03-2020 [facility] LOCATION distribution 08:00-0400 [facility] (83669) width (RBC) [Ratio] Glucose 109 mg/dL (H) 60 - 125 mg/dL 04-03-2020 PENDING LOCATION [Mass/Vol] 08:00-0400 [facility] (73116) Hematocrit (Bld) 40 % (NEG) 36.1 - 50.3 % 04-03-2020 P ENDING LOCATION [Volume 08:00-0400 [facility] (61522) fraction] Hemoglobin (Bld) 13.7 g/dL (NEG) 12.1 - 17.2 g/dL 04-03-2020 PENDING LOCATION [Mass/Vol] 08:00-0400 [facility] (22574) Lymphocytes 2.3 10*3/uL (NEG) 0.9 - 2.9 04-03-2020 PENDING LOCATION (Bld) [#/Vol] 10*3/uL 08:00-0400 [facility] (86404) Lymphocytes/100 21 % (NEG) 20 - 40 % 04-03-2020 [facility]END[facility] G LOCATION WBC (Bld) 08:00-0400 [facility] (23239) MCH (RBC) 27 pg (NEG) 27 - 31 pg 04-03-2020 PENDING LOC ATION [Entitic mass] 08:00-0400 [facility] (09797) MCHC (RBC) 34 g/dL (NEG) 32 - 36 g/dL 04-03-2020 PENDING LOCATION [Mass/Vol] 08:00-0400 [facility] (94857) MCV (RBC) 80 (NEG) 04-03-2020 PENDING LOCATI ON [Entitic vol] 08:00-0400 [facility] (20033) Monocytes (Bld) 0.6 10*3/uL (NEG) 0.3 - 0.9 04-03-2020 PEND ING LOCATION [#/Vol] 10*3/uL 08:00-0400 [facility] (43186) Monocytes/100 6 % (NEG) 2 - 8 % 04-03-2020 PENDING LOCATION WBC (Bld) 08:00-0400 [facility] (04501) Neutrophils 8.0 10*3/uL (H) 1.7 - 7 10*3/uL 04-03-2020 [facility] LOCATION (Bld) [#/Vol] 08:00-0400 [facility] (55152) Neutrophils/100 73 % (NEG) 40 - 60 % 04-03-2020 PENDIN G LOCATION WBC (Bld) 08:00-0400 [facility] (25996) Platelet mean 9.7 (NEG) 04-03-2020 PENDING LOCA TION volume (Bld) 08:00-0400 [facility] (72573) [Entitic vol] Platelets (Bld) 343 10*3/uL (NEG) 150 - 450 04-03-2020 PEND ING LOCATION [#/Vol] 10*3/uL 08:00-0400 [facility] (27369) Potassium 4.1 mmol/L (NEG) 3.7 - 5.2 mmol/L 04-03-2020 PEND ING LOCATION [Moles/Vol] 08:00-0400 [facility] (49459) RBC (Bld) 5.07 10*6/uL (NEG) 4.2 - 6.1 04-03-2020 PENDING L OCATION [#/Vol] 10*6/uL 08:00-0400 [facility] (77610) Sodium 140 mmol/L (NEG) 135 - 145 mmol/L 04-03-2020 PEND ING LOCATION [Moles/Vol] 08:00-040 [facility] (25686) Urea nitrogen 9 mg/dL (NEG) 7 - 20 mg/dL 04-03-2020 PENDI NG LOCATION [Mass/Vol] 08:00-040 [facility] (16749) Urea 10 mg/mg (no code) 6 - 22 mg/mg 04-03-2020 PENDING L OCATION nitrogen/Creatin 08:00-040 [facility] (95544) ine [Mass ratio] WBC (Bld) 11.0 10*3/uL (NEG) 3.5 - 10.5 04-03-2020 PENDING LOCATION [#/Vol] 10*3/uL 08:00 [facility] () Vital Signs The data below is from unstructured sources Vital Response Date/Time Temperature (Fahrenheit) 98.3 degree s F (97.6 - 99.5) 10/28/2016 12:41pm Temperature (Calculated Celsius) 36. 63254 degrees C (36.4 - 37.5) 10/28/2016 12:41pm Pulse Rate (adult) 122 bpm (60 - 90) 10/28/2016 12:41pm Respiratory Rate 18 bpm (12 - 24) 10/28/2016 12:41pm O2 Sat by Pulse Oximetry 95 % (88 - 100) 10/28/2016 1:32pm Blood Pressure 157/91 mm Hg 10/28/2016 12:41pm Blood Pressure Mean 113 mm Hg 10/28/2016 12:41pm Pain Numeric Pain Scale 0-No Pain 10/28/2016 12:41pm Height (Feet) 5 feet 12:41pm Height (Inches) 3 inches 10/28/2016 12:41pm Height (Calculated Centimeters) 160. 732173 cm 10/28/2016 12:41pm Weight (Pounds) 200 pounds 10/28/2016 12:41pm Weight (Calculated Kilograms) 90.718 475 kilograms 10/28/2016 12:41pm Capillary Refill Capillary Refill Less Than 3 Seconds 10/28/2016 12:41pm Height 5 ft 3 in Weight 200 lb Body Mass Index 35.4 kg/m^2 Vital Response Date/Time Temperature (Fahrenheit) 96.9 degree s F (97.6 - 99.5) 12/15/2015 7:02pm Temperature (Calculated Celsius) 36. 92323 degrees C (36.4 - 37.5) 12/15/2015 2:00pm Temperature Source Tympanic 12/15/2015 7:02pm Pulse Rate (adult) 128 bpm (60 - 90) 12/15/2015 7:02pm Respiratory Rate 19 bpm (12 - 24) 12/15/2015 7:02pm O2 Sat by Pulse Oximetry 95 % (88 - 100) 12/15/2015 7:02pm Blood Pressure 144/74 mm Hg 12/15/2015 7:02pm Blood Pressure Mean 97 mm Hg 12/15/2015 2:00pm Pain Pain Intensity 0 2015 2:00pm Height (Feet) 5 feet 07/2016 11:40am Height (Inches) 3.00 inches 12/10/2015 11:40am Height (Calculated Centimeters) 160. 556648 cm 12/10/2015 11:40am Weight (Pounds) 175 pounds 12/10/2015 11:40am Weight (Calculated Grams) 60381.666 gm 12/10/2015 11:40am Weight (Calculated Kilograms) 79.378 666 kilograms 12/10/2015 11:40am Calculated BMI 31.00 07/2016 11:40am Vital Response Date/Time Temperature (Fahrenheit) 98.0 degree s F (97.6 - 99.5) 11/05/2015 1:15pm Temperature (Calculated Celsius) 36. 44953 degrees C (36.4 - 37.5) 11/05/2015 1:15pm Temperature Source Tympanic 11/05/2015 1:15pm Pulse Rate (adult) 80 bpm (60 - 90) 11/05/2015 1:15pm Respiratory Rate 18 bpm (12 - 24) 11/05/2015 1:15pm O2 Sat by Pulse Oximetry 97 % (88 - 100) 11/05/2015 1:15pm Blood Pressure 126/81 mm Hg 11/05/2015 1:15pm Pain Pain Intensity 0 2015 1:15pm Height (Feet) 5 feet 03/2016 10:47am Height (Inches) 3.00 inches 11/05/2015 10:47am Height (Calculated Centimeters) 160. 226365 cm 11/05/2015 10:47am Weight (Pounds) 175 pounds 11/05/2015 10:47am Weight (Calculated Grams) 57488.666 gm 11/05/2015 10:47am Weight (Calculated Kilograms) 79.378 666 kilograms 11/05/2015 10:47am Calculated BMI 31.00 03/2016 10:47am Vital Response Date/Time Temperature (Fahrenheit) 98.0 degree s F (97.6 - 99.5) Temperature (Calculated Celsius) 36. 71228 degrees C (36.4 - 37.5) Temperature Source Temporal Pulse Rate (adult) 94 bpm (60 - 90) Respiratory Rate 18 bpm (12 - 24) O2 Sat by Pulse Oximetry 99 % (88 - 100) Blood Pressure 136/92 mm Hg Pain Pain Intensity 10 Height (Feet) 5 feet Height (Inches) 3 inches Height (Calculated Centimeters) 160. 082831 cm Weight (Pounds) 180 pounds Weight (Calculated Kilograms) 81.646 627 kilograms Calculated BMI 31.88 Vital Response Date/Time Temperature (Fahrenheit) 97.1 degree s F (97.6 - 99.5) Temperature (Calculated Celsius) 36. 19039 degrees C (36.4 - 37.5) Temperature Source Temporal Pulse Rate (adult) 82 bpm (60 - 90) Respiratory Rate 20 bpm (12 - 24) O2 Sat by Pulse Oximetry 96 % (88 - 100) Blood Pressure 132/84 mm Hg Pain Pain Intensity 3 Height (Feet) 5 feet Height (Inches) 3.00 inches Height (Calculated Centimeters) 160. 738820 cm Weight (Pounds) 175 pounds Weight (Calculated Grams) 72785.666 gm Weight (Calculated Kilograms) 79.378 666 kilograms Calculated BMI 31.00 Vital Response Date/Time Temperature (Fahrenheit) 97.1 degree s F (97.6 - 99.5) 09/30/2017 4:23pm Temperature (Calculated Celsius) 36. 59649 degrees C (36.4 - 37.5) 09/30/2017 4:23pm Temperature Source Temporal 09/30/2017 4:23pm Pulse Rate (adult) 87 bpm (60 - 90) 09/30/2017 4:23pm Respiratory Rate 20 bpm (12 - 24) 09/30/2017 4:23pm O2 Sat by Pulse Oximetry 94 % (88 - 100) 09/30/2017 4:23pm Blood Pressure 122/82 mm Hg 09/30/2017 4:23pm Blood Pressure Mean 95 mm Hg (65 - 110) 09/30/2017 4:23pm Pain Numeric Pain Scale 7 4:23pm Height (Feet) 5 feet 10/2016 4:23pm Height (Inches) 3.00 inches 09/30/2017 4:23pm Height (Calculated Centimeters) 160. 519439 cm 09/30/2017 4:23pm Height Method Stated 10/2016 4:23pm Weight (Pounds) 190 pounds 09/30/2017 4:23pm Weight (Ounces) 0 oz 10/2016 4:23pm Weight (Calculated Kilograms) 86.182 551 kilograms 09/30/2017 4:23pm Weight Method Stated 10/2016 4:23pm Capillary Refill Capillary Refill Less Than 3 Seconds 09/30/2017 4:23pm Height 5 ft 3 in 017 4:23pm Weight 190 lb 09/30/2017 4:23pm Body Mass Index 33.7 kg/m^2 09/30/2017 4:23pm Interventions No Information Plan of Treatment The data below is from unstructured sources Discharge Date 10/28/16 2:15pm Disposition 01 HOME, SELF-CARE Condition at Discharge Improved Instructions/Education Provided Coug h, Adult (DC) Prescriptions See Medication Section Referrals RONY RAY DO - Pr [facility] Physician Additional Instructions/Education Al l discharge instructions reviewed with patient and/or family. Voiced understanding. Take scheduled medications as directed by Dr. Ray/[facility] Discharge Date 12/15/15 7:13pm Disposition 01 HOME, SELF-CARE Instructions/Education Provided Acut e Respiratory Distress Syndrome (DC) Prescriptions See Medication Section Referrals (Unspecified) - Reason(s) for Referral: FOLLOW UP WITH DR KENNEDY ([phone])- CALL FOR FOLLOW UP IN 2 WEEKS PLEASE Care Plan and Goals See Discharge In structions Section Discharge Date 11/05/15 1:15pm Instructions/Education Provided EGD- ESOPHAGOGASTRODUODENOSCOPY High Fiber Diet (DC) Prescriptions See Medication Section Prescriptions See Medication Section Discharge Date 03/18/15 3:40pm Disposition 30 STILL A PATIENT Instructions/Education Provided Lith otripsy for Removal of Kidney Stones (DC) Prescriptions See Medications Sectio n Discharge Date 09/12/17 9:20am Prescriptions See Medication Section Discharge Date 09/30/17 7:38pm Disposition 01 HOME, SELF-CARE Condition at Discharge Stable Instructions/Education Provided Diar sylvester in Adolescents and Adults Prescriptions See Medication Section Referrals RONY RAY DO Order Date: Primary Care Physician Address: [address] [place] [id number] Additional Instructions/Education 1. Return to ER for any concerns such as fevers, worsening pain 2. Follow-up with your doctor next week 3. Drink plenty of fluids to stay hydrat ed. Pedialyte (find a flavor that you like) which you can buy at [employer] or [employer] is a great choice for oral rehydration solution. 4. Take Imodium as prescribed on the box . This is use to help control diarrhea. This can also be purchased [id number] [employer] or [employer]. All discharge instructions reviewed with patient and/or family. Voiced understanding. Goals No Information Social History No Information Functional Status The data below is from unstructured sources Query Response Date Rigo rded Patient Orientation Person Place Time Eyes Open Situation Normal For Age December 15, 2015 12:24pm Patient Orientation Person Place Time Situation Normal For Age December 15, 2015 8:05pm Comprehension Ability Understands Co ncepts December 15, 2015 8:00am Query Response Date Rigo rded Comprehension Ability Understands Co ncepts March 17, 2015 9:00pm Mental Status No Information Encounters Encounter Normalized Encounter Encounter Diagnosis Care Provi delio Organization Date Type 04-03-2020 Emergency department no information ROBIN Paul (no [facility] patient visit phone) [facility] (no phone) 09-30-2017 Emergency department no information GUILLERMINA JON (no [facility] - patient visit phone) [facility] 09-30-2017 (no phone) 10-28-2016 Emergency department no information ZOHRA MARTINEZ MD (no [facility] - patient visit phone) [facility] 10-28-2016 (no phone) 12-10-2015 Evaluation and no information ANA OSORIO DO (no [facility] - management of phone) [facility] 12-15-2015 inpatient (no phone) 07-25-2017 Patient encounter no information no name no or ganization name 05-18-2017 Patient encounter no information no name no or ganization name - 08-17-2017 07-14-2015 Patient encounter no information no name no or ganization name 04-24-2015 Patient encounter no information no name no or ganization name 04-14-2015 Patient encounter no information no name no or ganization name - 07-13-2015 03-11-2014 Patient encounter no information no name no or ganization name 02-13-2014 Patient encounter no information no name no or ganization name 03-28-2020 Patient encounter no information LUTHER L SULLIVA N [facility] - procedure DNP (no phone) [facility] 2020 (no phone) 03-27-2020 Patient encounter no information LUTHER L SULLIVA N [facility] procedure DNP (no phone) [facility] (no phone) 02-28-2020 Patient encounter no information LUTHER L SULLIVA N [facility] procedure DNP (no phone) [facility] FIOR ROWELL (no phone) (no phone) RACHEL CHILDRESS MD (no phone) RACHEL CHILDRESS MD (no phone) 01-31-2020 Patient encounter no information LUTHER L SULLIVA N [facility] procedure DNP (no phone) [facility] (no phone) 01-03-2020 Patient encounter no information LUTHER L SULLIVA N [facility] procedure DNP (no phone) [facility] (no phone) 03-09-2019 Patient encounter no information no name no or ganization name procedure 03-09-2019 Patient encounter no information CARLOS CARRILLO ( no [facility] procedure phone) LUTHER L [facility] FLOR DNP (no (no phone) phone) 11-03-2018 Patient encounter no information no name no or ganization name procedure 11-03-2018 Patient encounter no information JENNIFER Fritz ANSLEY (DDU) (no [facility] procedure phone) [facility] (no phone) 09-12-2017 Patient encounter no information LUTHER OROZCO N [facility] - procedure DNP (no phone) [facility] 09-12-2017 (no phone) 07-25-2017 Patient encounter no information CARLOS Chuck VIVAR MACHINE ENGINEER ( no [facility] procedure phone) [facility] (no phone) 05-19-2017 Patient encounter no information no name no or ganization name procedure 05-17-2017 Patient encounter no information no name no or ganization name - procedure 05-18-2017 02-04-2017 Patient encounter no information no name no or ganization name procedure 02-04-2017 Patient encounter no information RONY RAY DO [facility] procedure (no phone) [facility] (no phone) 07-16-2016 Patient encounter no information no name no or ganization name procedure 07-16-2016 Patient encounter no information RONY RAY DO [facility] procedure (no phone) [facility] (no phone) 06-25-2016 Patient encounter no information no name no or ganization name procedure 06-25-2016 Patient encounter no information LAINEY Ennis [facility] KAZ PA (no [facility] phone) (no phone) 03-01-2016 Patient encounter no information no name no or ganization name procedure 03-01-2016 Patient encounter no information LUTHER OROZCO N [facility] procedure DNP (no phone) [facility] (no phone) 12-23-2015 Patient encounter no information no name no or ganization name procedure 12-23-2015 Patient encounter no information RONY RAY DO [facility] procedure (no phone) [facility] (no phone) 12-19-2015 Patient encounter no information no name no or ganization name procedure 12-19-2015 Patient encounter no information RONY RAY DO [facility] procedure (no phone) [facility] (no phone) 12-05-2015 Patient encounter no information DREAD ARANGO [facility] procedure LONG TERM CARE ADMINISTRATOR (no phone) [facility] (no phone) 11-26-2015 Patient encounter no information DREAD E NBA [facility] procedure LONG TERM CARE ADMINISTRATOR (no phone) [facility] (no phone) 11-05-2015 Patient encounter no information no name no or ganization name - procedure 11-05-2015 11-05-2015 Patient encounter no information RACHEL CHILDRESS MD (n o [facility] - procedure phone) [facility] 11-05-2015 (no phone) 10-28-2015 Patient encounter no information RACHEL CHILDRESS MD (n o [facility] procedure phone) [facility] (no phone) 10-02-2015 Patient encounter no information no name no or ganization name procedure 10-02-2015 Patient encounter no information RONY RAY DO [facility] procedure (no phone) [facility] (no phone) 01-03-2020 no information Encounter for no name no organi zation name gynecological examination (general) (routine) without abnormal findings 01-03-2020 no information Encounter for other no name no organization name preprocedural examination no information Encounter for other no name no organiz ation name preprocedural examination Medical Equipment No Information Payers Normalized Payer Value [facility] no information Advance Directives Directive Response Recor ded Date/Time Advance Directives No 12:41pm Health Care Power of Boat Cleaner No 10/28/16 12:41pm Organ Donor Yes 10/28/16 12:41pm Resuscitation Status Full Code 10/28/16 12:41pm Directive Response Recor ded Date/Time Advance Directives No 11:40am Health Care Power of Boat Cleaner No 12/10/15 11:40am Organ Donor Yes 12/10/15 11:40am Resuscitation Status Full Code 12/10/15 11:40am Directive Response Recor ded Date/Time Advance Directives No 10:45am Health Care Power of Boat Cleaner No 11/05/15 10:45am Organ Donor Yes 11/05/15 10:45am Resuscitation Status Full Code 11/05/15 10:45am Directive Response Recor ded Date/Time Advance Directives No 2:04am Organ Donor Yes 03/08/15 2:04am Resuscitation Status Full Code 03/08/15 2:04am Directive Response Recor ded Date/Time Advance Directives No 8:18pm Organ Donor Yes 03/16/15 3:18pm Directive Response Recor ded Date/Time Advance Directives No 8:18pm Organ Donor Yes 03/16/15 3:18pm Resuscitation Status Full Code 03/16/15 8:18pm Directive Response Recor ded Date/Time Advance Directives No 12:41pm Health Care Power of Boat Cleaner No 10/28/16 12:41pm Organ Donor Yes 10/28/16 12:41pm Discharge Instructions No hospital discharge instructions. Patient Instructions Physician Instructions Plan of Care/Instructions/FU: Take medications as directed. It may be useful to use throat lozenges and also Tessalon or Tylenol with Codeine to suppress cough. At present this appears to have been a viral triggered illness and may last for an extended period of time Activity as Tolerated: Yes Goal: Ultimately to return to the cough state. Discharge Diet: No Restrictions Make an appointment to see Dr. Ray in 10-14 days. Make an appointment to see Dr. Galinod in 4-6 weeks. Care Plan Patient Instructions:: Take medications as directed.It may be useful to use throat lozenges and also Tessalon or Tylenol withCodeine to suppress cough.At present this appears to have been a viral triggered illness and maylast for an extended period of time Goal:: Ultimately to return to the cough state. Patient Instructions Physician Instructions New, Converted, or Re-Newed RX: RX on Chart Follow Up PRN Activity as tolerated High Fiber Diet 25g or more per day Avoid Alcohol, Caffeine, Spicy [place] and Acid foods. Drink 64 fluid oz or more of fluids per day. Symptoms to Report: Fever over 101 degree F, Nausea/Vomiting If any problems/questions: Contact your physician or go to Emergency Room No hospital discharge instructions.No hospital discharge instructions. Patient Instructions Physician Instructions New, Converted, or Re-newed RX: RX on Chart Plan Please make appointment to been seen in office in 2 weeks. Increase oral fluids for 48 hours and then as needed. Diet and Activity as tolerated. If questions or concerns contact your physician Or seek help at emergency department. No hospital discharge instruction information available.No hospital discharge instruction information available. Additional Source Comments This clinical document has been generated using [employer] software that has been certified by the Office of the National Coordinator for Health Information Technology (ONC 15.99.04.3023.Diam.31.00.0.189896) and the National Committee for Cut Off Saw Grader (NCQA, as an eMeasure certified technology). FOR RECORDS PERTAINING TO PATIENTS WHO ARE OR HAVE BEEN ENROLLED IN A CHEMICAL D EPENDENCY/SUBSTANCE ABUSE PROGRAM, SOME INFORMATION MAY BE OMITTED. This clinica l summary was aggregated from multiple sources. Caution should be exercised in using it in the provision of clinical care. This summary normalizes information from multiple sources, and as a consequence, information in this document may ma terially change the coding, format and clinical context of patient data. In riky tion, data may be omitted in some cases. CLINICAL DECISIONS SHOULD BE BASED ON T HE PRIMARY CLINICAL RECORDS. [employer] provides no warranty or guara ntee of the accuracy or completeness of information in this document.The followi ng information is based on time limited clinical information
--- OUTSIDE RECORDS SUMMARY | 2020-04-03 14:26 | XMS REPORT ---
Author Author Emma Ivory Doctor Organization [facility] Address Unknown Phone Unavailable Care Team Providers Care Rehanger Name Role Phone Migration, Doctor Unavailable Unavailable PROBLEMS Type Condition ICD9-CM Code CUD64-LJ Code Onset Dates Condition S tatus SNOMED Code Problem Need for prophylactic vaccination and inoculation, Influen za V04.81 Active [id number] ALLERGIES No Information ENCOUNTERS Encounter Location Date Diagnosis [place] [id number] [facility] [id number] [address] [place] [id number] Dec, [facility] [address] [facility] [id number] [address] [place] [id number] Sep, [facility] [address] [facility] [id number] [address] [place] [id number] Sep, IMMUNIZATIONS No Known Immunizations SOCIAL HISTORY Never Assessed REASON FOR VISIT PLAN OF CARE VITAL SIGNS MEDICATIONS Unknown Medications RESULTS No Results PROCEDURES No Known procedures INSTRUCTIONS MEDICATIONS ADMINISTERED No Known Medications
== END 2020-04-03 13:55 | disposition home or self-care (01) ==
LOC: EDUNIT# 11:57 → ER 11:58
DX: N13.2 Hydronephrosis with renal and ureteral calculous obstruction (principal); J45.909 Unspecified asthma, uncomplicated; Z88.7 Allergy status to serum and vaccine; Z79.52 Long term (current) use of systemic steroids; Z79.51 Long term (current) use of inhaled steroids; Z82.49 Family history of ischemic heart disease and other diseases of the circulatory system; Z80.42 Family history of malignant neoplasm of prostate
CPT/HCPCS: 36415; 74018; 74176; 80048; 81000; 85025

== ENCOUNTER → 2020-05-15 | Outpatient (CLI) | payer MEDICARE ==
[~2020-05-15] MED LIST changes: +KETO10TA PO
--- NOTE | 2020-05-15 17:36 | Diagnostic Imaging Report ---
PROCEDURE: CT urinary tract, rule out kidney stone. TECHNIQUE: Multiple contiguous axial images were obtained through the abdomen and pelvis without the use of intravenous contrast. Auto Exposure Controls were utilized during the CT exam to meet ALARA standards for radiation dose reduction. INDICATION: Gross hematuria, pelvic pain. History of renal stones. History of previous lung biopsies. CORRELATION STUDY: 04/03/2020. FINDINGS: LOWER THORAX: There is partial visualization of a linear density over the right lung base just adjacent to the diaphragm. It extends to the lateral costophrenic angle. No basilar infiltrate. Heart size is relatively normal. Small hiatal hernia. LIVER: Unremarkable on unenhanced imaging. GALLBLADDER: Cholecystectomy. No bile duct dilatation. SPLEEN: Unremarkable small splenule in the anterior hilum. PANCREAS: Unremarkable. ADRENAL GLANDS: Unremarkable. KIDNEYS: Small, nonobstructing bilateral renal stones. At the right UVJ and extending to the urinary bladder is a linear calcification which appears to represent two adjacent stones. In aggregate, approximately 11 to 12 mm in length with a thickness of 5 mm. Despite the rather prominent size, there is only mild severity of obstruction suggested. ABDOMINAL AORTA: Unremarkable, nonaneurysmal. GASTROINTESTINAL TRACT: No obstruction or inflammation. Normal appendix. URINARY BLADDER: Apart from calcification at the right UVJ, otherwise decompressed and unremarkable. REPRODUCTIVE: Post hysterectomy. Unchanged soft tissue nodular density, likely region of the left vaginal cuff, stable. OSSEOUS STRUCTURES: No acute abnormality. OTHER: None. IMPRESSION: 1. Fairly elongated or likely two adjacent stones at the right UVJ present. Despite the rather large size, only mild obstruction is suggested. 2. Additional nonobstructing bilateral small renal stones are present. Dictated by: Dictated on workstation # [id number]
--- NOTE | 2020-05-15 18:06 | Diagnostic Imaging Report ---
INDICATION: History of calculi. COMPARISON: CT dated 04/03/2020. FINDINGS: Single frontal radiographic view of the abdomen was obtained and demonstrates no unexpected extraosseous calcifications or radiopaque foreign bodies. Small bowel loops are nondistended. There is no large collection of free intraperitoneal air. Osseous structures show no acute abnormalities. IMPRESSION: 1. No unexpected extraosseous calcifications. Patient's known nonobstructive renal calculi may be inconspicuous on this exam. 2. Nonobstructed small bowel gas pattern. Dictated by: Dictated on workstation # [id number]
== END ==
LOC: RAD 15:17
PROVIDERS: ATTEND Urology
DX: N20.0 Calculus of kidney (principal); Z90.49 Acquired absence of other specified parts of digestive tract; Z98.890 Other specified postprocedural states
CPT/HCPCS: 74018; 74176

== ENCOUNTER 2020-05-26 05:46 | Outpatient (RCR) | payer MEDICARE ==
[~2020-05-26] VITALS: Ht 160 cm; Wt 90.9 kg
[2020-05-26] MEDS ORDERED: AZIT250T12 PO ×2 (12:50)
[2020-05-26] MEDS ORDERED: BENZ100C18 PO ×2 (12:50)
[2020-05-26] MEDS ORDERED: LEVO50TA6 PO ×2 (12:50)
[2020-05-26] MEDS ORDERED: METO75TA PO ×2 (12:50)
[2020-05-26] MEDS ORDERED: DEXT10TA9 PO ×2 (12:50)
[2020-05-26] MEDS ORDERED: PRD20T PO ×2 (12:50)
[2020-05-26] MEDS ORDERED: MAGN500C15 PO ×2 (12:50)
[2020-05-26] MEDS ORDERED: LIFI1DRO OP ×2 (12:50)
[2020-05-26] MEDS ORDERED: CHOL200074 PO ×2 (12:50)
[2020-05-26] MEDS ORDERED: DULO30CA49 PO ×2 (12:50)
[2020-05-26] MEDS ORDERED: ZOLP5TAB7 PO ×2 (12:50)
[2020-05-26] MEDS ORDERED: DIAZ5TAB49 PO ×2 (12:50)
[2020-05-26] MEDS ORDERED: MEPO100V SQ ×2 (12:53)
[2020-05-27] MEDS ORDERED: NITR-65 PO ×2 (08:32)
[2020-05-27] MEDS ORDERED: PHEN-640 PO ×2 (08:32)
== END 2020-05-26 14:17 | disposition home or self-care (01) ==
LOC: PREOP 05:46
PROVIDERS: ATTEND Urology
DX: Z01.818 Encounter for other preprocedural examination (principal)

== ENCOUNTER 2020-05-27 06:09 | Day surgery (SDC) | payer MEDICARE ==
[~2020-05-27] VITALS: Ht 160 cm; Wt 90.9 kg
[2020-05-27] VITALS (7 sets, daily range): BP systolic 119–160; BP diastolic 57–90
[~2020-05-27 06:09] MED LIST changes: +BENZ100C18 PO; +CHOL200074 PO; +DEXT10TA9 PO; +DIAZ5TAB49 PO; +DULO30CA49 PO; +LEVO50TA6 PO; +LIFI1DRO OP; +MAGN500C15 PO; +MEPO100V SQ; +METO75TA PO; +ZOLP5TAB7 PO
[2020-05-27] MEDS ORDERED: LACTATED RINGERS 1,000 ML IV PRN ×2 (06:17→06:41)
[2020-05-27] MEDS ORDERED: cefTRIAXone FOR IV USE 1,000 MG in WATER (STERILE) FOR INJECTION 10 ML IV ONE (06:30)
[2020-05-27] MEDS ORDERED: RT-ALBUTEROL SULF 2.5 MG/3 ML PRE-MIX VIAL ONE (06:44)
[2020-05-27] MEDS ORDERED: fentaNYL INJECTION 100 MCG/2 ML AMP ONE (06:45)
[2020-05-27] MEDS ORDERED: ONDANSETRON 4 MG/2 ML (SDV) Z0FRAN ONE (06:45)
[2020-05-27] MEDS ORDERED: LIDOCAINE PF 2% 5 ML (XYLOCAINE) VIAL ONE (06:45)
[2020-05-27] MEDS ORDERED: RT-ALBUTEROL SULF 2.5 MG/3 ML PRE-MIX VIAL INH ONE (06:45)
[2020-05-27] MEDS ORDERED: MIDAZOLAM 2 MG/2 ML (VERSED) VIAL ONE (06:46)
[2020-05-27] MEDS ORDERED: PROPOFOL INJECTION 50 ML IV ONE (06:54)
--- NOTE | 2020-05-27 07:04 | Progress Note-Pre Operative ---
Pre-Operative Progress Note H&P Reviewed The H&P was reviewed, patient examined and no changes noted. Date Seen by Provider: May 27, 2020 Time Seen by Provider: 07:01 Date H&P Reviewed: May 27, 2020 Time H&P Reviewed: 07:01 Pre-Operative Diagnosis: RT DISTAL URETERAL STONE VISH GROSSMAN MD May 27, 2020 07:04
[2020-05-27] MEDS ORDERED: SEVOFLURANE (ULTANE) 15 ML INHAL SOLN ONE (07:11)
--- NOTE | 2020-05-27 07:52 | Progress Note-Post Operative ---
Post-Operative Progess Note Surgeon (s)/Public Health Doctor (s) Surgeon VISH GROSSMAN MD Public Health Doctor: NONE Pre-Operative Diagnosis RT DISTAL URETERAL STONE Post-Operative Diagnosis SAME Procedure & Operative Findings Date of Procedure 05/27/20 Procedure Performed/Findings RT URETEROSCOPY WITH STONE LITHOTRIPSY Anesthesia Type GENERAL Estimated Blood Loss Estimated blood loss (mL): NONE Specimens/Packing Specimens Removed NONE Packing: NONE VISH GROSSMAN MD May 27, 2020 07:52
--- NOTE | 2020-05-27 07:54 | Discharge Inst-Urology ---
Discharge Inst-Urology Reconcile Patient Problems Problems Reviewed?: Yes Final Diagnosis RT DISTAL URETERAL STONE Patient Instructions/Follow Up Plan/Assessment/Instructions Please make appointment to been seen in office in 4 weeks. Increase oral fluids for 48 hours and then as needed. Diet and Activity as tolerated. If questions or concerns contact your physician Or seek help at emergency department. VISH GROSSMAN MD May 27, 2020 07:54
--- NOTE | 2020-05-27 08:15 | Diagnostic Imaging Report ---
EXAMINATION: Abdominal radiographs, single portable supine view. DATE: May 27, 2020. CLINICAL INDICATION: 50-year-old female, right lower ureteral stone. COMPARISON: [facility]UB May 15, 2020. CT abdomen pelvis May 15, 2020. COMMENTS: The previously noted stones in the region of the right ureterovesical junction are not well seen radiographically. Sensitivity for detection on radiographs is low compared to CT. There are no abnormally distended gas-filled segments of bowel. There is no identified pneumatosis or portal venous gas. The upper abdomen is not entirely in the included field of view of imaging. There is a left-sided pelvic calcification most likely relating to a phlebolith. IMPRESSION: 1. Previously noted stones at the level of the right ureterovesical junction are not well seen radiographically. Sensitivity for detection on radiographs is low compared to CT. 3. Left-sided pelvic calcification likely reflects a phlebolith. 3. Unremarkable bowel gas pattern. Dictated by: Dictated on workstation # [id number]
--- NOTE | 2020-05-27 08:15 | OPERATIVE REPORT ---
DATE OF SERVICE: 05/27/2020 PREOPERATIVE DIAGNOSIS: Right distal ureteral stone. POSTOPERATIVE DIAGNOSIS: Right distal ureteral stone. OPERATION PERFORMED: Right ureteroscopy with stone lithotripsy. SURGEON: Bishnu Grossman MD ANESTHESIA: General. COMPLICATIONS: None. DESCRIPTION OF PROCEDURE: Under satisfactory general anesthesia, the patient in lithotomy position, genitalia were prepped and draped in the usual sterile fashion. Cystoscope was introduced under vision. The cystoscopy was essentially normal except for sluggish efflux on the right side. Using the foroblique lens, I dilated the right ureteral orifice intramural portion to accommodate a 6.9 Nepali semi-rigid ureteroscope, visualized the stone and completely fragmented it with the lithoclast. I went beyond the stone with the scope all the way to the renal pelvis and down again to make sure there are no further stones and there were none. The ureteroscope was removed. Cystoscope was introduced to empty the bladder. The patient tolerated the procedure and anesthesia well and was sent to recovery room in stable condition. Job ID: [id number] DocumentID: [id number] Dictated Date: 05/27/2020 07:56:00 Chief Operator Hydroformer Date: 05/27/2020 08:14:59 Dictated By: BISHNU GROSSMAN MD
[2020-05-27] MEDS ORDERED: PHEN-640 PO ×2 (08:32)
[2020-05-27] MEDS ORDERED: NITR-65 PO ×2 (08:32)
--- NOTE | 2020-05-27 09:31 | Anesthesia-General Post-Op ---
General Patient Condition Mental Status/LOC: Same as Preop Cardiovascular: Satisfactory Nausea/Vomiting: Absent Respiratory: Satisfactory Pain: Controlled Complications: Absent Post Op Complications Complications None Follow Up Care/Instructions Patient Instructions None needed. Anesthesia/Patient Condition Patient Condition Patient is doing well, no complaints, stable vital signs, no apparent adverse anesthesia problems. No complications reported per nursing. JOSE OWENS CRNA May 27, 2020 09:31
== END 2020-05-27 09:25 | disposition home or self-care (01) ==
LOC: SDC 06:09
PROVIDERS: ATTEND Urology
DX: N20.1 Calculus of ureter (principal); Z20.828 Contact with and (suspected) exposure to other viral communicable diseases; Z11.2 Encounter for screening for other bacterial diseases; I10 Essential (primary) hypertension; J45.909 Unspecified asthma, uncomplicated; J84.10 Pulmonary fibrosis, unspecified; F32.9 Major depressive disorder, single episode, unspecified; F41.9 Anxiety disorder, unspecified; Z88.7 Allergy status to serum and vaccine; Z88.8 Allergy status to other drugs, medicaments and biological substances; Z79.899 Other long term (current) drug therapy; Z79.890 Hormone replacement therapy
CPT/HCPCS: 52353; 74018; 76000; 87081; 94640; U0002; 87635

== ENCOUNTER → 2020-06-03 | Outpatient (CLI) | payer MEDICARE ==
[~2020-06-03] MED LIST changes: +NITR-65 PO; +PHEN-640 PO
--- NOTE | 2020-06-03 13:06 | Diagnostic Imaging Report ---
INDICATION: Difficulty breathing. Time of exam 1:02 PM Comparison is made with prior chest from 02/04/2017. Heart size normal. There is some linear atelectasis in the right base as well as the left base near the costophrenic angle. No infiltrates are seen. There is no effusion. No pneumothorax is identified. The pulmonary vascularity is normal. IMPRESSION: Mild bibasilar subsegmental atelectasis. Dictated by: Dictated on workstation # [id number]
== END ==
LOC: RAD 12:46
PROVIDERS: ATTEND Nurse Practitioner Family
DX: J98.11 Atelectasis (principal)
CPT/HCPCS: 71046

== ENCOUNTER 2020-06-19 12:15 | Outpatient (RCR) | payer MEDICARE, OTHER ==
[2020-04-24] MEDS: MEPOLIZUMAB 100 MG (NUCALA) VIAL SQ SCH (13:08)
[2020-04-24 13:10] VITALS: BP 139/79
[2020-05-22 13:18] VITALS: BP 138/84
[2020-05-22] MEDS: MEPOLIZUMAB 100 MG (NUCALA) VIAL SQ SCH (13:18)
[~2020-06-19] VITALS: Ht 160 cm; Wt 95400.0 kg
[2020-06-19 12:15] VITALS: BP 128/86
[~2020-06-19 12:15] MED LIST changes: -CETI10TA21 PO; +CETI10TA49 PO; -PANT40TA3 PO; +PANT40TA52 PO
[2020-06-19] MEDS: MEPOLIZUMAB 100 MG (NUCALA) VIAL SQ SCH (12:39)
== END 2020-07-23 | disposition home or self-care (01) ==
LOC: SDC 12:15
PROVIDERS: ATTEND Nurse Practitioner Family
DX: J45.50 Severe persistent asthma, uncomplicated (principal); D72.1 Eosinophilia
CPT/HCPCS: 96372

== ENCOUNTER → 2020-07-18 | Outpatient (CLI) | payer MEDICARE | LOC: RAD 09:00 | PROVIDERS: ATTEND Nurse Practitioner | DX: Z12.31 Encounter for screening mammogram for malignant neoplasm of breast (principal) | CPT/HCPCS: 77063; 77067 ==

== ENCOUNTER 2020-09-19 13:48 | Outpatient (RCR) | payer MEDICARE, OTHER ==
[2020-07-17 13:15] VITALS: BP 130/84
[2020-08-14] MEDS: MEPOLIZUMAB 100 MG (NUCALA) VIAL SQ SCH (13:10)
[2020-08-14 13:15] VITALS: BP 136/89
--- NOTE | 2020-09-18 13:30 | NUR ---
PATIENT HERE TO RECEIVE NUCALA 100MG SQ. UNABLE TO ADMINISTER MEDICATION DUE TO MEDICATION BEING UNAVAILABLE FROM PHARMACY. RESCHEDULED PATIENT FOR 09/19/2020 OR 09/22/2020.
[~2020-09-19 13:48] MED LIST changes: +CLN.1T; -CLON0.1T; +MEPOLIZUMAB 100 MG (NUCALA) VIAL SQ NR; -MONT10TA26 PO; +MONT10TA97 PO
[2020-09-19] MEDS: MEPOLIZUMAB 100 MG (NUCALA) VIAL SQ SCH (14:12)
[2020-09-19 14:15] VITALS: BP 119/70
== END 2020-10-15 | disposition home or self-care (01) ==
LOC: SDC 13:48
PROVIDERS: ATTEND Nurse Practitioner Family
DX: J45.909 Unspecified asthma, uncomplicated (principal); D72.10 Eosinophilia, unspecified
CPT/HCPCS: 96372

== ENCOUNTER → 2020-09-24 | Outpatient (CLI) | payer MEDICARE ==
[~2020-09-24] MED LIST changes: -MEPOLIZUMAB 100 MG (NUCALA) VIAL SQ NR; +MONT10TA26 PO; -MONT10TA97 PO
--- NOTE | 2020-09-25 09:30 | NUR ---
Notified of postitive COVID test.
== END ==
LOC: LABNPT 09:29
PROVIDERS: ATTEND Nurse Practitioner
DX: U07.1 COVID-19 (principal)
CPT/HCPCS: 87635

== ENCOUNTER 2020-10-10 15:45 | Emergency (ER) | payer MEDICARE ==
[~2020-10-10] VITALS: Ht 160 cm; Wt 91.0 kg
[~2020-10-10 15:45] MED LIST changes: -MONT10TA26 PO; +MONT10TA97 PO
[2020-10-10] MEDS ORDERED: diphenhydrAMINE 50 MG/ML INJ (BENADRYL) IVP ONE (16:30)
[2020-10-10] MEDS ORDERED: PROCHLORPERAZINE 10 MG/2ML INJ (COMPAZINE) IV ONE (16:30)
[2020-10-10] MEDS ORDERED: KETOROLAC 30 MG/ML VIAL IVP ONE (16:30)
--- NOTE | 2020-10-10 16:31 | ED Cough/URI ---
General Chief Complaint: Respiratory Problems Stated Complaint: SOB,WEST, N/V Source: patient Exam Limitations: no limitations History of Present Illness Date Seen by Provider: Oct 10, 2020 Time Seen by Provider: 16:29 Initial Comments With headache nausea and vomiting. She had Covid at [facility], has subsequently been cleared to return to work. Today she had an episode of shortness of breath which she was able to help herself through by breathing slowly and she feels back to normal now in that regard but the headache persists her chest feels tight. She does not feel anxious. Timing/Duration: constant Severity/Quality: moderate Associated Symptoms: headache, shortness of breath Allergies and Home Medications Allergies Coded Allergies: hydrochlorothiazide (Verified Allergy, Severe, SOB/COUGH, 05/26/20) triamterene (Verified Allergy, Severe, SOB/COUGH, 05/26/20) Tetanus Vaccines and Toxoid (Verified Allergy, Unknown, 05/26/20) Home Medications Albuterol Sulfate 18 Gm Hfa.aer.ad, 2 PUFF INH Q4H PRN for SHORTNESS OF BREATH, (Reported) Azithromycin 250 Mg Tablet, 250 MG PO MoWeFr, (Reported) TAKE 2 TABLETS ON DAY ONE THEN TAKE 1 TABLET DAILY FOR FOUR MORE DAYS Benzonatate 100 Mg Capsule, 100 MG PO PRN, (Reported) Cholecalciferol (Vitamin D3) 50 Mcg Capsule, 50 MCG PO DAILY, (Reported) Cranberry Conc/Ascorbic Acid 1 Each Capsule, 2 CAP PO HS, (Reported) Dextroamphetamine/Amphetamine 10 Mg Tablet, 10 MG PO DAILY, (Reported) Diazepam 5 Mg Tablet, 5 MG PO Q12H PRN for ANXIETY, (Reported) Duloxetine HCl 30 Mg Capsule.dr, 30 MG PO BID, (Reported) Estradiol 1 Mg Tablet, 1.5 MG PO HS, (Reported) TAKES 1 & 1/2 (1MG) TABLETS Levalbuterol HCl 0.63 Mg/3 Ml Vial.neb, 0.63 MG NEB TID, (Reported) Levothyroxine Sodium 50 Mcg Tablet, 50 MCG PO DAILY, (Reported) Lifitegrast 1 Each Droperette, 1 EACH OP BID, (Reported) Magnesium Oxide 500 Mg Capsule, 500 MG PO DAILY, (Reported) Mepolizumab (Recombinant) 100 Mg Vial, 100 MG SQ MONTHLY, (Reported) Metoprolol Tartrate 75 Mg Tablet, 75 MG PO BID, (Reported) Nitrofurantoin Monohyd/M-Cryst 100 Mg Capsule, 1 TAB PO BID WITH MEALS Prescribed by: RISHI GALINDO on 05/27/20831 Phenazopyridine HCl 200 Mg Tablet, 1 TAB PO TIDAC Prescribed by: RISHI GALINDO on 05/27/2032 Prednisone 20 Mg Tab, 20 MG PO BID PRN for SHORTNESS OF BREATH, (Reported) Take 3 tabs(60mg)daily, decrease by 1/2 tab(10mg)daily. Zolpidem Tartrate 5 Mg Tablet, 5 MG PO HS PRN for INSOMNIA, (Reported) Patient Home Medication List Home Medication List Reviewed: Yes Review of Systems Review of Systems Constitutional: see HPI EENTM: see HPI Respiratory: see HPI, short of breath Cardiovascular: see HPI, chest pain Genitourinary: no symptoms reported Musculoskeletal: no symptoms reported Skin: no symptoms reported Psychiatric/Neurological: No Symptoms Reported Hematologic/Lymphatic: No Symptoms Reported Past Yrikebp-Ezypti-Uihmdn Hx Patient Social History 2nd Hand Smoke Exposure: No Recent Foreign Travel: No Contact w/Someone Who Travel: No Recent Hopitalizations: No Immunizations Up To Date Tetanus Booster (TDap): Unknown Date of Pneumonia Vaccine: Aug 06, 2019 Date of Influenza Vaccine: Aug 06, 2019 Seasonal Allergies Seasonal Allergies: Yes Past Medical History Surgeries: Yes (LAP KERRI,,NECK SURGERY, OVARIAN CYSTECTOMY, ESWL, OPEN LUNG BX ) Gallbladder, Hysterectomy Respiratory: Yes (EOSINOPHILIC ASTHMA, 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, HYP ERSENSITIVITY, ) Asthma, Chronic Bronchitis, Pulmonary Fibrosis Currently Using CPAP: No Currently Using BIPAP: No Cardiac: Yes (TACHYCARDIA) Hypertension Neurological: No Reproductive Disorders: Yes (INFERTILITY; HX OF HYST) 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 Sexually Transmitted Disease: No HIV/AIDS: No Genitourinary: Yes Kidney Stones Gastrointestinal: No Musculoskeletal: No Endocrine: Yes Hypothyroidsim HEENT: Yes (GLASSES/CONTACTS) Loss of Vision: Denies Hearing Impairment: Denies Cancer: No Psychosocial: Yes (SITUATIONAL R/T HUSBANDS ) Anxiety, Depression Integumentary: No Blood Disorders: No Adverse Reaction/Blood Tranf: No Family Medical History Arthritis Cardiovascular disease Cataracts Completed stroke Coronary thrombosis Deafness or hearing loss Diabetes mellitus Glaucoma Hypertension Osteoporosis Parkinson's disease Prostate cancer Respiratory disorder Severe allergy Visual disorder No Family History of: AIDS Abdominal aortic aneurysm [place]'s disease Alcoholism Alzheimer's disease Aphasia Asthma Cancer of mouth Colon cancer Congenital disease Congenital heart disease Cystic fibrosis Dementia Drug abuse Dysphasia Fibrocystic disease of breast Gastroenteritis Headache disorder Hypercholesterolemia Infertility Kidney disease Myocardial infarction Neoplasm Not obtainable due to adoption Psychosocial problem Seizure disorder Thyroid disease Tuberculosis Physical Exam Vital Signs - First Documented 10/10/20 16:15 Temp 35.9 Pulse 81 Resp 18 B/P (MAP) 160/96 (117) Pulse Ox 100 Capillary Refill : Height: 5'3.00" Weight: 190lbs. 0oz. 86.873352wy; 35.50 BMI Method:Stated General Appearance: WD/WN, no apparent distress, other (Alert and oriented no distress, heart rate in the 70s sinus without ectopy oxygen 99 to 100% on room air. Lungs are clear with good air movement.) Eyes: Bilateral Eye Normal Inspection, Bilateral Eye PERRL, Bilateral Eye EOMI HEENT: PERRL/EOMI, normal ENT inspection Respiratory: normal breath sounds, no respiratory distress, no accessory muscle use Gastrointestinal: normal bowel sounds, non tender Neurologic/Psychiatric: alert, normal mood/affect, oriented x 3 Skin: normal color, warm/dry Progress/Results/Core Measures Suspected Sepsis SIRS Temperature: Pulse: Respiratory Rate: Laboratory Tests 10/10/20 16:40: White Blood Count 11.8H Blood Pressure / Mean: Laboratory Tests 10/10/20 16:40: Creatinine 0.76, Platelet Count 359, Total Bilirubin 0.3 Results/Orders Lab Results Laboratory Tests Test 10/10/20 16:40 Range/Units White Blood Count 11.8 H 4.3-11.0 10^3/uL Red Blood Count 5.14 H 3.80-5.11 10^6/uL Hemoglobin 13.7 11.5-16.0 g/dL Hematocrit 42 35-52 % Mean Corpuscular Volume 82 80-99 fL Mean Corpuscular Hemoglobin 27 25-34 pg Mean Corpuscular Hemoglobin Concent 33 32-36 g/dL Red Cell Distribution Width 13.0 10.0-14.5 % Platelet Count 359 130-400 10^3/uL Mean Platelet Volume 10.0 9.0-12.2 fL Immature Granulocyte % (Auto) 0 % Neutrophils (%) (Auto) 75 42-75 % Lymphocytes (%) (Auto) 19 12-44 % Monocytes (%) (Auto) 5 0-12 % Eosinophils (%) (Auto) 1 0-10 % Basophils (%) (Auto) 0 0-10 % Neutrophils # (Auto) 8.8 H 1.8-7.8 10^3/uL Lymphocytes # (Auto) 2.2 1.0-4.0 10^3/uL Monocytes # (Auto) 0.6 0.0-1.0 10^3/uL Eosinophils # (Auto) 0.1 0.0-0.3 10^3/uL Basophils # (Auto) 0.0 0.0-0.1 10^3/uL Immature Granulocyte # (Auto) 0.0 0.0-0.1 10^3/uL D-Dimer < 0.27 0.00-0.49 UG/ML Sodium Level 133 L 135-145 MMOL/L Potassium Level 4.2 3.6-5.0 MMOL/L Chloride Level 106 98-107 MMOL/L Carbon Dioxide Level 18 L 21-32 MMOL/L Anion Gap 9 5-14 MMOL/L Blood Urea Nitrogen 11 7-18 MG/DL Creatinine 0.76 0.60-1.30 MG/DL Estimat Glomerular Filtration Rate > 60 BUN/Creatinine Ratio 14 Glucose Level 100 70-105 MG/DL Calcium Level 8.6 8.5-10.1 MG/DL Corrected Calcium 8.8 8.5-10.1 MG/DL Total Bilirubin 0.3 0.1-1.0 MG/DL Aspartate Amino Transf (AST/SGOT) 25 5-34 U/L Alanine Aminotransferase (ALT/SGPT) 22 0-55 U/L Alkaline Phosphatase 98 40-136 U/L Troponin I < 0.028 <0.028 NG/ML B-Type Natriuretic Peptide 76.5 <100.0 PG/ML Total Protein 6.6 6.4-8.2 GM/DL Albumin 3.8 3.2-4.5 GM/DL My Orders Orders - GUILLERMINA VILLAGOMEZ PAPERBOARD MACHINE OPERATOR Cbc With Automated Diff (10/10/20 16:22) Comprehensive Metabolic Panel (10/10/20 16:22) Ua Culture If Indicated (10/10/20 16:22) Fibrin Degradation Products (10/10/20 16:22) BNP (10/10/20 16:22) Ed Iv/Invasive Line Start (10/10/20 16:22) Chest 1 View, Ap/Pa Only (10/10/20 16:22) Ekg Tracing (10/10/20 16:22) Ed Iv/Invasive Line Start (10/10/20 16:22) Troponin I (10/10/20 16:28) Ketorolac Injection (Toradol Injection) (10/10/20 16:30) Prochlorperazine Injection (Compazine In (10/10/20 16:30) Diphenhydramine Injection (Benadryl Inje (10/10/20 16:30) Medications Given in ED Current Medications Medications Dose Ordered Sig/Faye Route Start Time Stop Time Status Last Admin Dose Admin Diphenhydramine HCl 25 mg ONCE ONCE IVP 10/10/20 16:30 10/10/20 16:31 DC 10/10/20 16:43 25 MG Ketorolac Tromethamine 15 mg ONCE ONCE IVP 10/10/20 16:30 10/10/20 16:31 DC 10/10/20 16:59 15 MG Prochlorperazine Edisylate 5 mg ONCE ONCE IV 10/10/20 16:30 10/10/20 16:31 DC 10/10/20 16:49 5 MG Vital Signs/I&O 10/10/20 16:15 Temp 35.9 Pulse 81 Resp 18 B/P (MAP) 160/96 (117) Pulse Ox 100 Capillary Refill : Diagnostic Imaging Diagonstic Imaging: Xray Plain Films/CT/US/NM/MRI: chest Comments NAME: EUFEMIA POLLARD [facility] REC#: [id number] PT STATUS: REG ER : 1970 PHYSICIAN: GUILLERMINA VILLAGOMEZ APRN ADMIT DATE: 10/10/20/ER Draft Date of Exam:10/10/20 CHEST 1 VIEW, AP/PA ONLY INDICATION: Shortness of breath and chest heaviness. TECHNIQUE: Frontal chest obtained at 04:40 p.m. and compared to 06/03/2020. FINDINGS: Heart and mediastinal silhouette are normal in appearance. There is some linear scarring in the right base which is similar to the previous study. There is no focal infiltrate or pneumothorax or pleural fluid. IMPRESSION: Unchanged parenchymal scarring in the right lung base. No focal infiltrate or pneumothorax or pleural fluid. Dictated on workstation # [id number] Dict: 10/10/20 1639 Trans: 10/10/20 1642 [id number] [id number] Interpreted by: ORION GEORGE MD Electronically signed by: Departure Impression Primary Impression: Dyspnea Disposition: 01 HOME, SELF-CARE Condition: Stable Departure-Patient Inst. Decision time for Depature: 17:47 Referrals: RONY RAY DO (PCP) Primary Care Physician LUTHER RAY DNP (Family) Primary Care Physician Patient Instructions: Shortness of Breath (Dyspnea) Add. Discharge Instructions: 1. Return to ER for any concerns 2. Follow-up with your doctor next week 3. All discharge instructions reviewed with patient and/or family. Voiced understanding. GUILLERMINA VILLAGOMEZ PAPERBOARD MACHINE OPERATOR Oct 10, 2020 16:31
--- NOTE | 2020-10-10 16:43 | Diagnostic Imaging Report ---
INDICATION: Shortness of breath and chest heaviness. TECHNIQUE: Frontal chest obtained at 04:40 p.m. and compared to 06/03/2020. FINDINGS: Heart and mediastinal silhouette are normal in appearance. There is some linear scarring in the right base which is similar to the previous study. There is no focal infiltrate or pneumothorax or pleural fluid. IMPRESSION: Unchanged parenchymal scarring in the right lung base. No focal infiltrate or pneumothorax or pleural fluid. Dictated by: Dictated on workstation # [id number]
[2020-10-10 16:55] LABS: BASOPHILS % (AUTO) 0 % (0-10); EOSINOPHILS # (AUTO) 0.1 10^3/uL (0.0-0.3); EOSINOPHILS % (AUTO) 1 % (0-10); HEMATOCRIT 42 % (35-52); HEMOGLOBIN 13.7 g/dL (11.5-16.0); LYMPHOCYTES # (AUTO) 2.2 10^3/uL (1.0-4.0); LYMPHOCYTES % (AUTO) 19 % (12-44); MEAN CORPUSCULAR HEMOGLOBIN 27 pg (25-34); MEAN CORPUSCULAR HGB CONC 33 g/dL (32-36); MEAN CORPUSCULAR VOLUME 82 fL (80-99); MONOCYTES # (AUTO) 0.6 10^3/uL (0.0-1.0); MONOCYTES % (AUTO) 5 % (0-12); NEUTROPHILS # (AUTO) 8.8 10^3/uL (1.8-7.8); NEUTROPHILS % (AUTO) 75 % (42-75); PLATELET COUNT 359 10^3/uL (130-400); WHITE BLOOD COUNT 11.8 10^3/uL (4.3-11.0)
[2020-10-10 17:06] LABS: ALBUMIN 3.8 GM/DL (3.2-4.5); CHLORIDE 106 MMOL/L (98-107); POTASSIUM 4.2 MMOL/L (3.6-5.0); SODIUM 133 MMOL/L (135-145)
[2020-10-10 17:07] LABS: CALCIUM 8.6 MG/DL (8.5-10.1)
[2020-10-10 17:08] LABS: GLUCOSE 100 MG/DL (70-105); TOTAL PROTEIN 6.6 GM/DL (6.4-8.2)
[2020-10-10 17:09] LABS: CARBON DIOXIDE 18 MMOL/L (21-32)
[2020-10-10 17:10] LABS: BILIRUBIN,TOTAL 0.3 MG/DL (0.1-1.0)
[2020-10-10 17:11] LABS: ALKALINE PHOSPHATASE 98 U/L (40-136)
[2020-10-10 17:12] LABS: CREATININE SERUM 0.76 MG/DL (0.60-1.30); GFR ESTIMATED > 60
[2020-10-10 17:13] LABS: BUN/CREATININE RATIO 14
[2020-10-10 17:15] LABS: ALANINE AMINOTRANSFERASE 22 U/L (0-55)
[2020-10-10 17:50] LABS: BILIRUBIN,URINE NEGATIVE (NEGATIVE); CLARITY,URINE CLEAR; COLOR,URINE YELLOW; GLUCOSE, URINE (UA) NEGATIVE (NEGATIVE); KETONES,URINE NEGATIVE (NEGATIVE); LEUKOCYTE ESTERASE ,URINE NEGATIVE (NEGATIVE); NITRITE,URINE NEGATIVE (NEGATIVE); PH,URINE 6.5 (5-9); PROTEIN,URINE NEGATIVE (NEGATIVE)
[2020-10-10 17:54] VITALS: BP 160/96
--- NOTE | 2020-10-10 18:14 | CONSULTATION REPORT ---
DATE OF SERVICE: ATTENDING PRIMARY CARE PHYSICIAN: Karsten Chacon. HISTORY OF PRESENT ILLNESS: The patient is a 50-year-old female well known to us. 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 She does have a history of respiratory issues and developed a significant cough and shortness of breath over the years. 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 She does take multiple breathing treatments. She also was found to be coronavirus-19 positive over 2 weeks ago; however, had very mild symptoms. She presented with significant shortness of breath and was brought to the Emergency Department. Since being in the Emergency Department, she has less anxiety and is breathing on room air at 100%. She does have some chest tightness. PAST MEDICAL HISTORY: Microcytic pneumoconiosis, asthma, hypertension, gastroesophageal reflux disease. PAST SURGICAL HISTORY: Jostin fundoplication, total hysterectomy, laparoscopic cholecystectomy, neck ORIF. ALLERGIES: HYDROCHLOROTHIAZIDE, TRIAMTERENE, TETANUS VACCINE AND TOXOID. MEDICATIONS: Albuterol MDI q.4 hours p.r.n., azithromycin 250 mg 3 days a week, benzonatate 100 mg p.r.n., diazepam 5 mg q.12 hours p.r.n., duloxetine 30 mg b.i.d., estradiol 1 mg each day at bedtime, levalbuterol nebulizer breathing treatments t.i.d., levothyroxine 50 mcg daily, lifitegrast eyedrop b.i.d., mepolizumab 100 mg monthly, metoprolol 25 mg b.i.d., nitrofurantoin 100 mg t.i.d., phenazopyridine 200 mg q.i.d., prednisone 20 mg b.i.d. p.r.n., Ambien 5 mg at bedtime p.r.n. SOCIAL HISTORY: Negative smoke, negative alcohol. FAMILY HISTORY: Noncontributory. VITAL SIGNS: Temperature 35.9, pulse 81, respirations 18, blood pressure 160/69, pulse ox 100% on room air. REVIEW OF SYSTEMS: Well-nourished female currently in no acute distress. She was experiencing significant shortness of breath at home and in transit to the Emergency Department; however, after reducing her anxiety, her shortness of breath has improved dramatically; however, she still does have some mild chest pressure sensation upon inspiration. No new cough or sputum production. No nausea, vomiting, no diarrhea or constipation. No fever, chills, no recent inadvertent weight loss. All other review of systems negative. PHYSICAL EXAMINATION: CHEST: Scattered rales and rhonchi bilaterally. HEART: Regular, no murmurs. EXTREMITIES: No lower extremity edema, negative Homans sign. HEENT: No scleral icterus. NECK: No cervical lymphadenopathy. ABDOMEN: Soft, nontender, nondistended. SKIN: Warm, dry. ASSESSMENT AND PLAN: A 50-year-old female with acute exacerbation of underlying microcytic pneumoconiosis as well as asthma. We are unsure of the etiology of the recent episode of acute shortness of breath; however, appears to have improved significantly since being admitted to the Emergency Department. She will undergo further workup for possible pulmonary embolism. If her respiratory status does decline, she may need an admission as well as initial noninvasive oxygen therapy and hopefully, circumventing intubation. Job ID: [id number] DocumentID: [id number] Dictated Date: 10/10/2020 17:02:30 Cardiovascular Technician Date: 10/10/2020 17:22:46 Dictated By: RACHEL CHILDRESS MD
[2020-10-10 18:18] LABS: BACTERIA,URINE NEGATIVE /HPF; SQUAMOUS EPITHELIAL CELL,UR 0-2 /HPF
== END 2020-10-10 17:54 | disposition home or self-care (01) ==
LOC: EDUNIT# 15:45 → ER 15:48
DX: R06.00 Dyspnea, unspecified (principal); I10 Essential (primary) hypertension; F41.9 Anxiety disorder, unspecified; E03.9 Hypothyroidism, unspecified; J45.909 Unspecified asthma, uncomplicated; F32.9 Major depressive disorder, single episode, unspecified; Z82.61 Family history of arthritis; Z82.49 Family history of ischemic heart disease and other diseases of the circulatory system; Z83.3 Family history of diabetes mellitus; Z80.42 Family history of malignant neoplasm of prostate; Z88.7 Allergy status to serum and vaccine; Z88.8 Allergy status to other drugs, medicaments and biological substances; Z79.890 Hormone replacement therapy; Z79.52 Long term (current) use of systemic steroids
CPT/HCPCS: 36415; 71045; 80053; 81000; 83880; 84484; 85025; 85379; 93005

== ENCOUNTER → 2020-11-06 | Outpatient (CLI) | payer MEDICARE ==
[~2020-11-06] MED LIST changes: +CATHETER FLUSH 10 ML SYR IV PRN; +HOLD METFORMIN - RECEIVED CONTRAST 20 ML VIAL IV SCH; +IOHEXOL 350 MG/ML 100 ML (OMNIPAQUE 350) VIAL IV ONE; +NS 100 ML (IVPB) BAG IV ONE
--- NOTE | 2020-11-06 09:16 | Diagnostic Imaging Report ---
PROCEDURE: CT angiography of the chest with contrast. TECHNIQUE: Multiple contiguous axial images were obtained through the chest after uneventful bolus administration of intravenous contrast. 3D reconstructed CTA MIP acquisitions were also performed. Auto Exposure Controls were utilized during the CT exam to meet ALARA standards for radiation dose reduction. INDICATION: Covid positive on . Continued shortness of breath. Evaluate for pulmonary embolism. COMPARISON: Chest radiograph on 10/10/2020. CT chest on 12/23/2015. FINDINGS: This helical CT pulmonary angiogram is diagnostic to the subsegmental level branches of the pulmonary artery and demonstrates no pulmonary emboli. The heart and great vessels are unremarkable. There is no pericardial effusion. There is no axillary, mediastinal, or hilar adenopathy. Postsurgical changes are noted in the right middle lobe. There is a small amount of associated architectural distortion. No focal consolidations or pulmonary masses are seen. No pleural effusion or pneumothorax. No central endobronchial obstructing lesions. Osseous structures appear normal. Limited views of the upper abdomen are unremarkable. IMPRESSION: 1. No acute pulmonary embolus. 2. Postsurgical changes in the right middle lobe with associated architectural distortion. No focal consolidations or suspicious pulmonary nodules. No pleural effusions. Dictated by: Dictated on workstation # [id number]
== END ==
LOC: RAD 08:15
PROVIDERS: ATTEND Nurse Practitioner Family
DX: U07.1 COVID-19 (principal); J84.10 Pulmonary fibrosis, unspecified; J22 Unspecified acute lower respiratory infection; Z98.890 Other specified postprocedural states
CPT/HCPCS: 71275

== ENCOUNTER 2020-12-11 11:38 | Outpatient (RCR) | payer MEDICARE ==
[2017-09-30 16:23] VITALS: BP 3/190
[~2020-12-11 11:38] MED LIST changes: -CATHETER FLUSH 10 ML SYR IV PRN; -HOLD METFORMIN - RECEIVED CONTRAST 20 ML VIAL IV SCH; -IOHEXOL 350 MG/ML 100 ML (OMNIPAQUE 350) VIAL IV ONE; +MONT10TA32 PO; -MONT10TA97 PO; -NS 100 ML (IVPB) BAG IV ONE
[2020-12-11 11:43] VITALS: BP 117/80
== END 2020-12-11 12:30 | disposition home or self-care (01) ==
LOC: SDC 11:38
PROVIDERS: ATTEND Nurse Practitioner Family
DX: J45.909 Unspecified asthma, uncomplicated (principal); D72.10 Eosinophilia, unspecified

== ENCOUNTER 2021-01-08 11:26 | Outpatient (RCR) | payer MEDICARE ==
[2020-10-16 12:15] VITALS: BP 136/70
[2020-10-16] MEDS: MEPOLIZUMAB 100 MG (NUCALA) VIAL SQ SCH (12:40)
[2020-11-13] MEDS: MEPOLIZUMAB 100 MG (NUCALA) VIAL SQ SCH (12:25)
[2020-11-13 12:46] VITALS: BP 152/85
[2020-12-11] MEDS: MEPOLIZUMAB 100 MG (NUCALA) VIAL SQ SCH (12:29)
[2021-01-08 11:45] VITALS: BP 140/88
[2021-01-08] MEDS ORDERED: MEPOLIZUMAB 100 MG (NUCALA) VIAL SQ SCH (11:45)
== END 2021-01-14 | disposition home or self-care (01) ==
LOC: SDC 11:26
PROVIDERS: ATTEND Nurse Practitioner Family
DX: J45.909 Unspecified asthma, uncomplicated (principal); D72.10 Eosinophilia, unspecified
CPT/HCPCS: 96372

== ENCOUNTER 2021-04-30 11:02 | Outpatient (RCR) | payer MEDICARE ==
[2021-02-05] MEDS: MEPOLIZUMAB 100 MG (NUCALA) VIAL SQ SCH (11:57)
[2021-02-05 12:01] VITALS: BP 122/67
[2021-03-05 11:25] VITALS: BP 130/68
[2021-03-05] MEDS: MEPOLIZUMAB 100 MG (NUCALA) VIAL SQ SCH (11:30)
[2021-04-02 11:52] VITALS: BP 122/72
[2021-04-02] MEDS: MEPOLIZUMAB 100 MG (NUCALA) VIAL SQ SCH (11:52)
[~2021-04-30] VITALS: Ht 160 cm
[2021-04-30] MEDS: MEPOLIZUMAB 100 MG (NUCALA) VIAL SQ SCH (11:24)
[2021-04-30 11:30] VITALS: BP 125/77
== END 2021-05-06 | disposition home or self-care (01) ==
LOC: SDC 11:02
PROVIDERS: ATTEND Nurse Practitioner Family
DX: J45.909 Unspecified asthma, uncomplicated (principal); D72.10 Eosinophilia, unspecified
CPT/HCPCS: 96372

== ENCOUNTER → 2021-05-13 | Outpatient (CLI) | payer MEDICARE | LOC: LABNPT 14:36 | PROVIDERS: ATTEND Nurse Practitioner | DX: Z20.822 Contact with and (suspected) exposure to COVID-19 (principal) | CPT/HCPCS: 87636 ==

== ENCOUNTER 2021-05-28 11:48 | Outpatient (RCR) | payer MEDICARE ==
[~2021-05-28] VITALS: Ht 178 cm; Wt 68.0 kg
[2021-05-28 11:40] VITALS: BP 128/86
[2021-05-28] MEDS ORDERED: MEPOLIZUMAB 100 MG (NUCALA) VIAL SQ SCH (12:00)
== END 2021-05-28 12:35 | disposition home or self-care (01) ==
LOC: SDC 11:48
PROVIDERS: ATTEND Nurse Practitioner Family
DX: J45.50 Severe persistent asthma, uncomplicated (principal); D72.10 Eosinophilia, unspecified
CPT/HCPCS: 96372

== ENCOUNTER → 2021-07-20 | Outpatient (CLI) | payer MEDICARE ==
--- NOTE | 2021-07-20 10:32 | Diagnostic Imaging Report ---
INDICATION: Screening. The current study was also evaluated with a Computer Aided Detection (CAD) system. 3-D Tomographic imaging was also performed. Comparison made with prior examination from 07/18/2020, 03/09/2019, 07/25/2017. FINDINGS: There are scattered areas of fibroglandular density. There is no dominant mass, spiculated lesion or suspicious calcification identified. Skin, nipples and axilla are unremarkable. IMPRESSION: Category 1 negative ACR BI-RADS Category 1: Negative. Result letter will be mailed to the patient. Note: At least 10% of breast cancer is not imaged by mammography. Dictated by: Dictated on workstation # [id number]
== END ==
LOC: RAD 07:44
PROVIDERS: ATTEND Surgery
DX: Z12.31 Encounter for screening mammogram for malignant neoplasm of breast (principal)
CPT/HCPCS: 77063; 77067

== ENCOUNTER 2021-09-17 11:18 | Outpatient (RCR) | payer MEDICARE ==
[2021-06-25 11:20] VITALS: BP 124/85
[2021-06-25] MEDS: MEPOLIZUMAB 100 MG (NUCALA) VIAL SQ SCH (12:10)
[2021-07-23] MEDS: MEPOLIZUMAB 100 MG (NUCALA) VIAL SQ SCH (11:55)
[2021-07-23 12:00] VITALS: BP 127/80
[2021-08-20] MEDS: MEPOLIZUMAB 100 MG (NUCALA) VIAL SQ SCH (11:30)
[2021-08-20 11:35] VITALS: BP 118/78
[~2021-09-17] VITALS: Ht 172.7 cm; Wt 95.0 kg
[~2021-09-17 11:18] MED LIST changes: +MONT-40 PO; -MONT10TA32 PO
[2021-09-17 11:20] VITALS: BP 119/66
[2021-09-17] MEDS: MEPOLIZUMAB 100 MG (NUCALA) VIAL SQ SCH (12:04)
== END 2021-09-23 | disposition home or self-care (01) ==
LOC: SDC 11:18
PROVIDERS: ATTEND Nurse Practitioner Family
DX: J45.909 Unspecified asthma, uncomplicated (principal); D72.10 Eosinophilia, unspecified
CPT/HCPCS: 96372

== ENCOUNTER 2021-10-15 11:52 | Outpatient (RCR) | payer MEDICARE ==
[~2021-10-15] VITALS: Wt 95.0 kg
[2021-10-15] MEDS ORDERED: MEPOLIZUMAB 100 MG (NUCALA) VIAL SQ SCH (12:00)
[2021-10-15 12:20] VITALS: BP 122/79
== END 2021-10-30 | disposition home or self-care (01) ==
LOC: SDC 11:52
PROVIDERS: ATTEND Nurse Practitioner Family
DX: J45.909 Unspecified asthma, uncomplicated (principal); D72.10 Eosinophilia, unspecified
CPT/HCPCS: 96372

== ENCOUNTER 2021-11-12 11:24 | Outpatient (RCR) | payer MEDICARE ==
[2021-11-12 11:30] VITALS: BP 130/95
[2021-11-12] MEDS ORDERED: MEPOLIZUMAB 100 MG (NUCALA) VIAL SQ SCH (11:45)
== END 2021-11-30 | disposition home or self-care (01) ==
LOC: SDC 11:24
PROVIDERS: ATTEND Nurse Practitioner Family
DX: J82.83 Eosinophilic asthma (principal)
CPT/HCPCS: 96372

== ENCOUNTER 2021-12-10 11:18 | Outpatient (RCR) | payer MEDICARE ==
[2021-12-10] MEDS ORDERED: MEPOLIZUMAB 100 MG (NUCALA) VIAL SQ SCH (11:27)
[2021-12-10 11:38] VITALS: BP 132/81
== END 2021-12-28 | disposition home or self-care (01) ==
LOC: SDC 11:18
PROVIDERS: ATTEND Nurse Practitioner Family
DX: J82.83 Eosinophilic asthma (principal)
CPT/HCPCS: 96372

== ENCOUNTER 2022-01-07 11:46 | Outpatient (RCR) | payer MEDICARE ==
[2022-01-07] MEDS ORDERED: MEPOLIZUMAB 100 MG (NUCALA) VIAL SQ SCH (12:00)
[2022-01-07 12:16] VITALS: BP 131/89
== END 2022-01-28 | disposition home or self-care (01) ==
LOC: SDC 11:46
PROVIDERS: ATTEND Internal Medicine
DX: J45.909 Unspecified asthma, uncomplicated (principal); D72.10 Eosinophilia, unspecified
CPT/HCPCS: 96372

== ENCOUNTER 2022-02-05 12:25 | Outpatient (RCR) | payer MEDICARE ==
[~2022-02-05 12:25] MED LIST changes: +ACET-11 PO; -ACET1TAB43 PO
[2022-02-05 12:35] VITALS: BP 120/71
[2022-02-05] MEDS ORDERED: MEPOLIZUMAB 100 MG (NUCALA) VIAL SQ SCH (12:45)
== END 2022-02-27 | disposition home or self-care (01) ==
LOC: SDC 12:25
PROVIDERS: ATTEND Internal Medicine
DX: J82.83 Eosinophilic asthma (principal)
CPT/HCPCS: 96372

== ENCOUNTER 2022-03-04 12:31 | Outpatient (RCR) | payer MEDICARE ==
[~2022-03-04] VITALS: Wt 95.0 kg
[2022-03-04] MEDS ORDERED: MEPOLIZUMAB 100 MG (NUCALA) VIAL SQ SCH (12:39)
[2022-03-04 12:40] VITALS: BP 111/75
== END 2022-03-30 | disposition home or self-care (01) ==
LOC: SDC 12:31
PROVIDERS: ATTEND Internal Medicine
DX: J82.83 Eosinophilic asthma (principal)
CPT/HCPCS: 96372

== ENCOUNTER 2022-04-01 10:45 | Outpatient (RCR) | payer MEDICARE ==
[~2022-04-01] VITALS: Wt 95.0 kg
[~2022-04-01 10:45] MED LIST changes: -TRIA1CAP4 PO; +TRIA1CAP84 PO
[2022-04-01] MEDS ORDERED: MEPOLIZUMAB 100 MG (NUCALA) VIAL SQ SCH (11:00)
[2022-04-01 13:06] VITALS: BP 112/72
== END 2022-04-29 | disposition home or self-care (01) ==
LOC: SDC 10:45
PROVIDERS: ATTEND Internal Medicine
DX: J82.83 Eosinophilic asthma (principal)
CPT/HCPCS: 96372

== ENCOUNTER → 2022-04-29 | Outpatient (RCR) | payer MEDICARE ==
[~2022-04-29] MED LIST changes: +MEPOLIZUMAB 100 MG (NUCALA) VIAL SQ SCH
[2022-04-29 12:12] VITALS: BP 110/74
== END ==
LOC: SDC 11:41
PROVIDERS: ATTEND Internal Medicine
DX: J82.83 Eosinophilic asthma (principal)
CPT/HCPCS: 96372

== ENCOUNTER 2022-05-28 12:05 | Outpatient (RCR) | payer MEDICARE ==
[~2022-05-28 12:05] MED LIST changes: -MEPOLIZUMAB 100 MG (NUCALA) VIAL SQ SCH
[2022-05-28] MEDS ORDERED: MEPOLIZUMAB 100 MG (NUCALA) VIAL SQ SCH (12:15)
[2022-05-28 12:20] VITALS: BP 131/83
[2022-05-28 12:37] VITALS: BP 156/97
== END 2022-05-30 | disposition home or self-care (01) ==
LOC: SDC 12:05
PROVIDERS: ATTEND Internal Medicine
DX: J45.909 Unspecified asthma, uncomplicated (principal)
CPT/HCPCS: 96372

== ENCOUNTER 2022-06-25 15:29 | Outpatient (RCR) | payer MEDICARE ==
[~2022-06-25] VITALS: Wt 95.0 kg
[2022-06-25 15:40] VITALS: BP 0/0
[2022-06-25] MEDS ORDERED: MEPOLIZUMAB 100 MG (NUCALA) VIAL SQ SCH (15:40)
== END 2022-06-30 | disposition home or self-care (01) ==
LOC: SDC 15:29
PROVIDERS: ATTEND Nurse Practitioner Family
DX: J45.909 Unspecified asthma, uncomplicated (principal); D72.10 Eosinophilia, unspecified
CPT/HCPCS: 96372

== ENCOUNTER 2022-07-02 22:08 | Emergency (ER) | payer MEDICARE ==
--- NOTE | 2022-07-02 22:47 | ED Lower Extremity ---
General Chief Complaint: Trauma-Non Activation Stated Complaint: FALL/ANKLE INJURY Nursing Triage Note: PT ARRIVAL TO ER [facility]IA [facility] FROM [facility]OTBALL GAME. PT WAS IN STANDS, SLIPPED ON BOTTOM STEP OF BLEACHERS AND FELL. PT HAS MINOR SWELLING TO LEFT ANKLE. 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 Source: patient History of Present Illness Date Seen by Provider: Jul 02, 2022 Time Seen by Provider: 22:17 Initial Comments PT ARRIVES VIA EMS FROM FOOTBALL STADIUM STATES SHE WAS LEAVING THE STADIUM, AND SLIPPED WHILE GOING DOWN THE LAST COUPLE OF STEPS, AND FELL, INJURING HER LEFT ANKLE STATES SHE HAS PAIN FROM HER FOOT TO HER KNEE. LEG FEELS SLIGHTLY NUMB, BUT DOES HAVE SENSATION TO LIGHT TOUCH DID NOT HIT HEAD AND NO LOSS OF CONSCIOUSNESS NO NECK OR BACK PAIN NO UPPER EXTREMITY INJURIES NO PRIOR INJURIES OR PROBLEMS WITH LEFT LEG/ANKLE/FOOT EMS GAVE FENTANYL 100 MCG PRIOR TO ARRIVAL PCP: DR. RAY Allergies and Home Medications Allergies Coded Allergies: hydrochlorothiazide (Verified Allergy, Severe, SOB/COUGH, 05/26/20) triamterene (Verified Allergy, Severe, SOB/COUGH, 05/26/20) Tetanus Vaccines and Toxoid (Verified Allergy, Unknown, 05/26/20) Patient Home Medication List Home Medication List Reviewed: Yes Albuterol Sulfate (Ventolin Hfa) 18 Gm Hfa.aer.ad, 2 PUFF INH Q4H PRN for SHORTNESS OF BREATH, (Reported) Entered as Reported by: RADHA CAMPOS on 12/10/15 1309 Azithromycin (Azithromycin) 250 Mg Tablet, 250 MG PO MoWeFr, (Reported) Entered as Reported by: GATO UMAÑA on 05/26/20 1250 Benzonatate (Tessalon Perles) 100 Mg Capsule, 100 MG PO PRN, (Reported) Entered as Reported by: GATO UMAÑA on 05/26/20 1250 Cholecalciferol (Vitamin D3) (Vitamin D3) 50 Mcg Capsule, 50 MCG PO DAILY, (Reported) Entered as Reported by: GATO UMAÑA on 05/26/20 1250 Cranberry Conc/Ascorbic Acid (Cranberry Plus Vitamin C Sftgl) 1 Each Capsule, 2 CAP PO HS, (Reported) Entered as Reported by: RADHA CAMPOS on 12/10/15 1309 Dextroamphetamine/Amphetamine (Adderall 10 mg Tablet) 10 Mg Tablet, 10 MG PO DAILY, (Reported) Entered as Reported by: GATO UMAÑA on 05/26/20 125 Diazepam (Diazepam) 5 Mg Tablet, 5 MG PO Q12H PRN for ANXIETY, (Reported) Entered as Reported by: GATO UMAÑA on 05/26/20 125 Duloxetine HCl (Duloxetine HCl) 30 Mg Capsule.dr, 30 MG PO BID, (Reported) Entered as Reported by: GATO UMAÑA on 05/26/20 125 Estradiol (Estradiol Tablet) 1 Mg Tablet, 1.5 MG PO HS, (Reported) Entered as Reported by: RADHA CAMPOS on 12/10/15 125 Hydrocodone/Acetaminophen (Hydrocodone-Acetamin 5-325 mg) 5 Mg-325 Mg Tablet, 1 EACH PO Q4-6 HOURS PRN for PAIN Prescribed by: JOSSELINE WONG on 07/02/22 217 Levalbuterol HCl (Levalbuterol HCl) 0.63 Mg/3 Ml Vial.neb, 0.63 MG NEB TID, (Reported) Entered as Reported by: RADHA CAMPOS on 12/10/15 1309 Levothyroxine Sodium (Levothyroxine Sodium) 50 Mcg Tablet, 50 MCG PO DAILY, (Reported) Entered as Reported by: GATO UMAÑA on 05/26/20 125 Lifitegrast (Xiidra) 1 Each Droperette, 1 EACH OP BID, (Reported) Entered as Reported by: GATO UMAÑA on 05/26/20 125 Magnesium Oxide (Magnesium) 500 Mg Capsule, 500 MG PO DAILY, (Reported) Entered as Reported by: GATO UMAÑA on 05/26/20 1250 Mepolizumab (Recombinant) (Nucala) 100 Mg Vial, 100 MG SQ MONTHLY, (Reported) Entered as Reported by: GATO UMAÑA on 05/26/20 125 Metoprolol Tartrate (Metoprolol Tartrate) 75 Mg Tablet, 75 MG PO BID, (Reported) Entered as Reported by: GATO UMAÑA on 05/26/20 125 Nitrofurantoin Monohyd/M-Cryst (Macrobid 100 mg Capsule) 100 Mg Capsule, 1 TAB PO BID WITH MEALS Prescribed by: RISHI GALINDO on 05/27/20 0832 Phenazopyridine HCl (Pyridium) 200 Mg Tablet, 1 TAB PO TIDAC Prescribed by: RISHI GALINDO on 05/27/20 0832 Prednisone (Prednisone) 20 Mg Tab, 20 MG PO BID PRN for SHORTNESS OF BREATH, (Reported) Entered as Reported by: GATO UMAÑA on 05/26/20 1250 Zolpidem Tartrate (Zolpidem Tartrate) 5 Mg Tablet, 5 MG PO HS PRN for INSOMNIA, (Reported) Entered as Reported by: GATO UMAÑA on 05/26/20 1250 Review of Systems Constitutional: no symptoms reported EENTM: no symptoms reported Respiratory: no symptoms reported Cardiovascular: no symptoms reported Gastrointestinal: no symptoms reported Genitourinary: no symptoms reported Musculoskeletal: see HPI Skin: other (MINOR ABRASION TO LEFT ANKLE) Psychiatric/Neurological: See HPI Past Vdpmvil-Nhzwat-Sngjme Hx Patient Social History Tobacco Use?: No Use of E-Cig and/or Vaping dev: No Substance use?: No Alcohol Use?: Yes Alcohol type: Beer, Hard Liquor, Wine Alcohol Frequency: Several times a month Pt feels they are or have been: No Immunizations Up To Date Tetanus Booster (TDap): Unknown Influenza Vaccine Up-to-Date: No; Not Current Second COVID19 Vaccination Jimenez: UNSURE COVID19 Vaccine 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: 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 Seasonal Allergies Seasonal Allergies: Yes Past Medical History Surgeries: Yes (LAP KERRI,,NECK SURGERY, OVARIAN CYSTECTOMY, ESWL, OPEN LUNG BX ) Abdominal, Gallbladder, Hysterectomy, Oophorectomy, Orthopedic, Renal Respiratory: Yes (EOSINOPHILIC ASTHMA, 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, HYPERSENSITIVITY, ) Asthma, Chronic Bronchitis, Pulmonary Fibrosis Currently Using CPAP: No Currently Using BIPAP: No Cardiac: Yes (TACHYCARDIA) Hypertension Neurological: No Reproductive Disorders: Yes (INFERTILITY; HX OF HYST) 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: Hysterectomy Sexually Transmitted Disease: No HIV/AIDS: No Genitourinary: Yes Kidney Stones Gastrointestinal: No Musculoskeletal: No Endocrine: Yes Hypothyroidsim HEENT: Yes (GLASSES/CONTACTS) Loss of Vision: Denies Hearing Impairment: Denies Cancer: No Psychosocial: Yes (SITUATIONAL R/T HUSBANDS ) Anxiety, Depression Integumentary: No Blood Disorders: No Adverse Reaction/Blood Tranf: No Family Medical History Arthritis Cardiovascular disease Cataracts Completed stroke Coronary thrombosis Deafness or hearing loss Diabetes mellitus Glaucoma Hypertension Osteoporosis Parkinson's disease Prostate cancer Respiratory disorder Severe allergy Visual disorder No Family History of: AIDS Abdominal aortic aneurysm Rankin's disease Alcoholism Alzheimer's disease Aphasia Asthma Cancer of mouth Colon cancer Congenital disease Congenital heart disease Cystic fibrosis Dementia Drug abuse Dysphasia Fibrocystic disease of breast Gastroenteritis Headache disorder Hypercholesterolemia Infertility Kidney disease Myocardial infarction Neoplasm Not obtainable due to adoption Psychosocial problem Seizure disorder Thyroid disease Tuberculosis ADDITIONAL PAST MEDICAL HISTORY: "5 DIFFERENT LUNG DISEASES"--NO HOME O2, USES INHALERS PRN Physical Exam Vital Signs Vital Signs - First Documented Capillary Refill : Less Than 3 Seconds Height, Weight, BMI Height: 5'3.00" Weight: 190lbs. 0oz. [id number]; 35.00 BMI Method:Stated General Appearance: WD/WN, no apparent distress HEENT: PERRL/EOMI Neck: non-tender, full range of motion, supple, normal inspection Cardiovascular: normal peripheral pulses, regular rate, rhythm, no murmur Respiratory: chest non-tender, normal breath sounds Gastrointestinal: non tender, soft Back: normal inspection, no CVA tenderness, no vertebral tenderness Hips: bilateral hip normal inspection Legs: right leg normal inspection; left leg other (TENDERNESS TO LEFT LEG FROM KNEE TO FOOT. 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 as tested, no motor/sensory deficits, alert, normal mood/affect, oriented x 3 Skin: normal color, warm/dry Procedures/Interventions Splinting and Joint Reduction : Butch wrap: Yes Immobilizers: Step Light Walker s/m/lg Ordered: Crutches Progress/Results/Core Measures Results/Orders My Orders Orders - JOSSELINE WONG DO Tibia/Fibula, Left, 2 Views (07/02/22 22:21) Knee, Left, 3 Views (07/02/22 22:21) Foot, Left, 3 Views (07/02/22 22:21) Ankle, Left, 3 Views (07/02/22 22:21) Butch Bandage (07/02/22 22:58) Crutches (07/02/22 22:58) Steplite (07/02/22 22:58) Rx-Hydrocodone/Apap 5-325 Mg (Rx-Vicodin (07/02/22 23:00) Medications Given in ED Current Medications Medications Dose Ordered Sig/Faye Route Start Time Stop Time Status Last Admin Dose Admin Acetaminophen/ Hydrocodone Bitart 1 ea Q4H PRN PO 07/02/22 23:00 07/02/22 23:16 1 EA Vital Signs/I&O 07/02/22 07/02/22 07/02/22 22:10 22:10 23:13 Temp 36.0 36.0 Pulse 63 63 69 Resp 16 16 16 B/P (MAP) 106/51 (69) 106/51 (69) 101/66 Pulse Ox 100 100 99 O2 Delivery Room Air Room Air Room Air Blood Pressure Mean: 69 Diagnostic Imaging Comments XRAYS--ALL PER RADIOLOGIST REPORTS AT : 2310 EXAMS: 1: X-ray of the left knee, 3 views. 2: X-ray of the left tibia and fibula, 3 views. 3: X-ray of the left ankle, 3 views. 4: X-ray of the left foot, 3 views. COMPARISON: None. FINDINGS: There is a roughly 15 mm popcorn-like sclerotic and lucent area involving the proximal fibular metaphysis which may represent an enchondroma. Left knee shows no acute fracture or dislocation. There is no knee effusion. There is a slightly displaced fracture of the lateral malleolus which is slightly displaced by 1 to 2 mm. There is no other fracture of the ankle seen. Ankle mortise and syndesmotic joints otherwise unremarkable. There is hypertrophic calcaneal spur at the plantar attachment. There is no fracture of the mid foot or forefoot bony structures. There is soft tissue swelling involving the ankle region. IMPRESSION: 1: There is a slightly displaced fracture involving the lateral malleolus. 2: There is no other fracture seen involving the left knee, left tibia and fibula, left ankle, or left foot. 3: There is a 15 mm popcorn-like sclerotic and lucent area involving the proximal fibula metaphysis. Enchondroma may be considered. Comparison to outside prior imaging would help better evaluate for chronicity. 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 Reviewed: Reviewed by Me Departure Impression Primary Impression: Fall down stairs Additional Impression: Closed fracture of left distal fibula Disposition: HOME, SELF-CARE Condition: Stable Departure-Patient Inst. Decision time for Depature: 22:50 Referrals: RONY RAY DO (PCP) Primary Care Physician LUTHER RAY, THOMAS (Family) Primary Care Physician SHANTEL HEALY MD Patient Instructions: Ankle Fracture (DC), Fibula Fracture (DC), Going Up and Down Curbs or Stairs With a Walker or Crutches, How to Use Crutches, How to Use an Elastic Bandage, Walking Boot Add. Discharge Instructions: NO WEIGHT BEARING--USE CRUTCHES, BUTCH WRAP AND BOOT AT ALL TIMES ICE TO AREA AT 20 MINUTE INTERVALS ELEVATE FOOT MUCH POSSIBLE FOLLOW UP WITH DR. HEALY ON TUESDAY FOR FURTHER CARE--CALL Tuesday TO SCHEDULE APPOINTMENT All discharge instructions reviewed with patient and/or family. Voiced understanding. Scripts Hydrocodone/Acetaminophen (Hydrocodone-Acetamin 5-325 mg) 5 Mg-325 Mg Tablet 1 EACH PO Q4-6 HOURS PRN for PAIN, #20 TAB Prov: JOSSELINE WONG DO 07/02/22 JOSSELINE WONG DO Jul 02, 2022 22:47
[2022-07-02] MEDS ORDERED: ACHD5005 PO (22:57)
--- NOTE | 2022-07-02 23:04 | Diagnostic Imaging Report ---
CLINICAL INDICATION: Patient with left leg pain. EXAMS: 1: X-ray of the left knee, 3 views. 2: X-ray of the left tibia and fibula, 3 views. 3: X-ray of the left ankle, 3 views. 4: X-ray of the left foot, 3 views. COMPARISON: None. FINDINGS: There is a roughly 15 mm popcorn-like sclerotic and lucent area involving the proximal fibular metaphysis which may represent an enchondroma. Left knee shows no acute fracture or dislocation. There is no knee effusion. There is a slightly displaced fracture of the lateral malleolus which is slightly displaced by 1 to 2 mm. There is no other fracture of the ankle seen. Ankle mortise and syndesmotic joints otherwise unremarkable. There is hypertrophic calcaneal spur at the plantar attachment. There is no fracture of the mid foot or forefoot bony structures. There is soft tissue swelling involving the ankle region. IMPRESSION: 1: There is a slightly displaced fracture involving the lateral malleolus. 2: There is no other fracture seen involving the left knee, left tibia and fibula, left ankle, or left foot. 3: There is a 15 mm popcorn-like sclerotic and lucent area involving the proximal fibula metaphysis. Enchondroma may be considered. Comparison to outside prior imaging would help better evaluate for chronicity. 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 Dictated by: Dictated on workstation # [id number]
[2022-07-02 23:13] VITALS: BP 101/66
== END 2022-07-02 23:13 ==
LOC: EDUNIT# 22:08 → ER 22:09
DX: S82.832A Other fracture of upper and lower end of left fibula, initial encounter for closed fracture (principal); W10.9XXA Fall (on) (from) unspecified stairs and steps, initial encounter; Y92.39 Other specified sports and athletic area as the place of occurrence of the external cause
CPT/HCPCS: 73562; 73590; 73610; 73630; 99282; L4350